=== PATIENT | female | born 1950 | race Caucasian/White ===

== ENCOUNTER → 2017-03-03 | Day surgery (SDC) | payer OTHER ==
[2017-02-24 12:01] VITALS: BMI 35.0
[~2017-03-03] VITALS: Ht 170.2 cm; Wt 101.4 kg
[~2017-03-03] MED LIST: ACET-1311 PO; BISA1SUP4; CARB1CAP8 PO; CEPH-571 PO; CLR10 PO; DLN100 PO; FENTANYL CITRATE INJ 50 MCG/1 ML 2 ML VIAL ONE; FRS/40 PO; HYDR-5688 PO; LAMO200T38 PO; LAMO25TA PO; LIDOCAINE HCL 2% 2 ML VIAL (20MG/ML) ONE; METO25TA3 PO; POTA10CA28 PO; PRMVC; PROPOFOL IV EMULSION 10 MG/ML 20 ML VIAL IV ONE; ROPI0.5T15 PO; SENN-61 PO; SODIUM CHLORIDE 0.9% 500ML 500 ML IV ONE; [UNRECOGNIZED DRUG - CODE] PO
[2017-03-03 12:46] VITALS: Ht 170.2 cm; Wt 101.4 kg
--- NOTE | 2017-03-03 13:16 | Endo History and Physical ---
History & Physical Date of Service: Mar 03, 2017. Chief Complaint: hx barretts Referring Physician: Dr. Mehta History of Present Illness h/o [place] Past Medical History Neurological Disorder, Endocrine Disorder, Osteoporosis, Asthma, Gastrointestinal Disorder, Anxiety, Reflux, Blood Dyscrasias, Seizure Disorder, Cancer, Heart Disease, CHF, Hypertension, CVA/TIA, Other, Depression Past Surgical History Hx Cardiac Surgery: No Hx Internal Defibrillator: No Hx Pacemaker: No Hx Abdominal Surgery: No Hx of Implantable Prosthesis: No Hx Cancer Surgery: Yes (BCC REMOVED.) Hx Thoracic Surgery: No Hx Orthopedic: Yes (ORIF RT ANKLE) Hx Urinary Tract Surgery: No Social History Smoking Status: Unknown if Ever Smoked Hx Substance Use: No Hx Alcohol Use: No Allergies Coded Allergies: Pseudoephedrine (Verified Allergy, Unknown, ., 03/03/17) Current Medications Reported Home Medications Medications Dose Route/Sig Max Daily Dose Days Date Category Dose Instructions [place] 5MG/325MG (Acetaminophen/Hydrocodone Bitart) Tab 1 Tablet PO Q4H PRN 02/24/17 Reported PRN PAIN Senokot (Senna) 8.6 Mg Tab 1 Tab PO BID 02/24/17 Reported Requip (Ropinirole HCl) 0.5 Mg Tab 0.5 Mg PO HS 02/24/17 Reported Micro-K Ext Rel (Potassium Chloride) 10 Meq Capcr 20 Meq PO QAM 02/24/17 Reported Dilantin (Phenytoin Sodium) 100 Mg Cap 1 Cap PO TID 30 02/24/17 Reported Premarin (Estrogens, Conjugated) 14 Appln/30 Gm Cr 1 Dose 3XWK 02/24/17 Reported Carbatrol Er (Carbamazepine) 200 Mg Capcr 2 Cap PO QAM 02/24/17 Reported Carbatrol Er (Carbamazepine) 200 Mg Capcr 3 Cap PO QPM 02/24/17 Reported Calcitrate (Calcium Citrate) 950 Mg Tab 2 Cap PO QID 02/24/17 Reported Vital Signs Weight (Kilograms): 101.36 Height (Feet): 5 Height (Inches): 7 Date Time Temp Pulse Resp B/P (MAP) Pulse Ox O2 Delivery O2 Flow Rate FiO2 03/03/17 12:56 36.6 71 18 109/66 (80) 96 Room Air Physical Exam General Appearance: WD/WN, no apparent distress Assessment and Plan EGD today
--- NOTE | 2017-03-03 13:48 | GI REPORT ---
Procedure Date: 03/03/2017 1:27 PM Procedure: Upper GI endoscopy Indications: Surveillance for malignancy due to personal history of Trevino's esophagus Medicines: Propofol per Anesthesia Complications: No immediate complications. Estimated blood loss: None. Estimated Blood Loss: Estimated blood loss: none. Procedure: Pre-Anesthesia Assessment: - Prior to the procedure, a History and Physical was performed, and patient medications, allergies and sensitivities were reviewed. The patient's tolerance of previous anesthesia was reviewed. - The risks and benefits of the procedure and the sedation options and risks were discussed with the patient. All questions were answered and informed consent was obtained. - Patient identification and proposed procedure were verified prior to the procedure by the physician and the nurse. The procedure was verified in the pre-procedure area in the procedure room. - Mental Status Examination: alert and oriented. Airway Examination: normal oropharyngeal airway and neck mobility. Respiratory Examination: clear to auscultation. CV Examination: normal. Abdominal Examination: bowel sounds present, abdomen soft and non-tender, no masses or organomegaly noted. - ASA Grade Assessment: III - A patient with severe systemic disease. After obtaining informed consent, the endoscope was passed under direct vision. Throughout the procedure, the patient's blood pressure, pulse, and oxygen saturations were monitored continuously. The scope was introduced through the mouth, and advanced to the second part of duodenum. The upper GI endoscopy was accomplished without difficulty. The patient tolerated the procedure well. Findings: There were esophageal mucosal changes consistent with short-segment Trevino's esophagus present in the lower third of the esophagus. The maximum longitudinal extent of these mucosal changes was 3 cm in length. A large hiatus hernia was present. The examined duodenum was normal. Impression: - Esophageal mucosal changes consistent with short-segment Trevino's esophagus. - Large hiatus hernia. - Normal examined duodenum. - No specimens collected. Recommendation: - Repeat the upper endoscopy in 3 years for surveillance, health permitting. - Return to primary care physician as previously scheduled. - Use a proton pump inhibitor PO. - Discharge patient to home. Jojo Park D.O. Jojo Park DO 03/03/2017 1:47:32 PM This report has been signed electronically. Note Initiated On: 03/03/2017 1:27 PM I attest to the content of the Intraoperative Record and orders documented therein, exceptions below
--- NOTE | 2017-03-03 13:57 | Discharge Instructions ---
Endoscopy Patient Instructions Date / Procedure(s) Performed Mar 03, 2017. EGD Allergy Information Coded Allergies: Pseudoephedrine (Verified Allergy, Unknown, ., 03/03/17) Discharge Date / Findings Mar 03, 2017. Barretts esophagus Medication Instructions Stopped Medication(s): did not take any morning meds Restart Stopped Medication(s): OK to resume all home medications. as above. Provider Instructions Activity Restrictions - No exercising or heavy lifting for 24 hours. - Do not drink alcohol the day of the procedure. - Do not drive a car or operate machinery until the day after the procedure. - Do not make any important decisions or sign important papers in 24 hours after the procedure. Following Day: - Return to full activity which may include returning to work/school. Diet Start your diet with liquids and light foods (jello, soup, juice, toast). Then eat your usual diet if not nauseated. Treatment For Common After Affects For mild abdominal pain, bloating, or excessive gas: - Rest - Eat lightly - Lie on right side Follow-Up Information Follow-up with Dr. Mehta as scheduled Anesthesia Information What You Should Know You have had a procedure that required some medicine to reduce anxiety and discomfort. This treatment is called moderate sedation. After receiving the treatment, you may be sleepy, but you will be able to breathe on your own. The effects of the treatment may last for several hours. Follow these instructions along with Activity/Diet recommendations noted above: * Do NOT do anything where dizziness or clumsiness would be dangerous. * Rest quietly at home today, then you can be up and about tomorrow. * Have a responsible person stay with you the rest of today. * You may have had an I.V. today. If so, you may take the dressing off later today. Recommendations Call your doctor if: * Trouble breathing * Continuous vomiting for more than 24 hours * Temperature above 101 degrees * Severe abdominal pain or bloating * Pain not relieved by pain medicine ordered * There is increased drainage or redness from any incision * A large amount of rectal bleeding greater than 2-3 tablespoons. (If you had a polyp/s removed or have hemorrhoids, a small amount of blood - from the rectum is to be expected.) * You have any unanswered questions or concerns. IN THE EVENT OF A SERIOUS EMERGENCY, GO TO THE NEAREST EMERGENCY ROOM Your discharge instructions were prepared by provider Jojo Park. Patient Instructions Signature Page Clau Lance Patient (or Guardian) Signature/Date: I have read and understand the instructions given to me by my caregivers. Caregiver/RN/Doctor Signature/Date: The above-named patient and/or guardian has received patient instructions on this date. + Original Patient Signature Page (only) stays with chart. Please make copy for patient.
[2017-03-03 14:00] VITALS: BP 110/72; PULSE 70; O2SAT 97
--- NOTE | 2017-03-03 14:08 | Anesthesiology Progress Note ---
Anesthesia Post Op Note Date & Time Mar 03, 2017 at 14:07 Vital Signs Pain Intensity: 0 Vital Signs Past 12 Hours Date Time Temp Pulse Resp B/P (MAP) Pulse Ox O2 Delivery O2 Flow Rate FiO2 03/03/17 14:00 70 16 110/72 (85) 97 Room Air 03/03/17 13:51 71 16 121/74 (90) 99 Room Air 03/03/17 13:41 67 16 100/58 (72) 96 Room Air 03/03/17 12:56 36.6 71 18 109/66 (80) 96 Room Air Notes Mental Status: alert / awake / arousable, participated in evaluation Pt Amnestic to Procedure: Yes Nausea / Vomiting: adequately controlled Pain: adequately controlled Airway Patency, RR, SpO2: stable & adequate BP & HR: stable & adequate Hydration State: stable & adequate Anesthetic Complications: no major complications apparent
== END | disposition home or self-care (01) ==
LOC: C.GI 12:20
PROVIDERS: ATTEND Internal Medicine
DX: K22.70 Barrett's esophagus without dysplasia (principal); K44.9 Diaphragmatic hernia without obstruction or gangrene; K21.9 Gastro-esophageal reflux disease without esophagitis; I11.0 Hypertensive heart disease with heart failure; I50.9 Heart failure, unspecified; E34.9 Endocrine disorder, unspecified; J45.909 Unspecified asthma, uncomplicated; F41.9 Anxiety disorder, unspecified; F32.9 Major depressive disorder, single episode, unspecified; Z86.73 Personal history of transient ischemic attack (TIA), and cerebral infarction without residual deficits; M81.0 Age-related osteoporosis without current pathological fracture; G40.909 Epilepsy, unspecified, not intractable, without status epilepticus; D75.9 Disease of blood and blood-forming organs, unspecified; Z79.899 Other long term (current) drug therapy

== ENCOUNTER 2017-03-04 11:35 | Emergency (ER) | payer OTHER ==
[~2017-03-04] VITALS: Ht 172.7 cm; Wt 99.4 kg
[~2017-03-04 11:35] MED LIST changes: -ACET-1311 PO; -BISA1SUP4; -CEPH-571 PO; -CLR10 PO; -FENTANYL CITRATE INJ 50 MCG/1 ML 2 ML VIAL ONE; -FRS/40 PO; -LAMO200T38 PO; -LAMO25TA PO; -LIDOCAINE HCL 2% 2 ML VIAL (20MG/ML) ONE; -METO25TA3 PO; -PROPOFOL IV EMULSION 10 MG/ML 20 ML VIAL IV ONE; -SODIUM CHLORIDE 0.9% 500ML 500 ML IV ONE
[2017-03-04 11:46] VITALS: Ht 172.7 cm; Wt 99.4 kg
[2017-03-04 11:51] VITALS: O2SAT 96
[2017-03-04] MEDS ORDERED: METO25TA3 PO (12:43)
[2017-03-04] MEDS ORDERED: LAMO25TA PO (12:43)
[2017-03-04] MEDS ORDERED: FRS/40 PO (12:43)
[2017-03-04] MEDS ORDERED: BISA1SUP4 (12:43)
[2017-03-04] MEDS ORDERED: CLR10 PO (12:43)
[2017-03-04] MEDS ORDERED: ACET-1311 PO (12:43)
[2017-03-04] MEDS ORDERED: LAMO200T38 PO (12:43)
[2017-03-04] MEDS ORDERED: SODIUM CHLORIDE 0.9% 1000ML 250 ML IV STA (13:13)
[2017-03-04] MEDS ORDERED: SODIUM CHLORIDE 0.9% 1000ML 1,000 ML IV STA (13:13)
[2017-03-04 13:52] LABS: CALCIUM 8.5 mg/dl (8.5-10.1); CREATININE 0.8 mg/dl (0.60-1.20); POTASSIUM 4.1 mmol/L (3.5-5.1)
--- NOTE | 2017-03-04 14:21 | DIAGNOSTIC IMAGING REPORT ---
ABDOMEN AND PELVIS CT WITHOUT CONTRAST CT DOSE: HISTORY: Right lower quadrant abdominal pain. eval for endoscopy comp TECHNIQUE: Multiaxial CT images of the abdomen and pelvis were performed without contrast. A dose lowering technique was utilized adhering to the principles of ALARA. COMPARISON STUDY: None. FINDINGS: Calcifications and groundglass opacities at the base of the lower lobes. Moderate hiatus hernia. No pneumoperitoneum. No pneumatosis. Mild presacral edema. A 9 mm presacral hypodense lesion/cyst. Lumbar subcutaneous edema. Cholecystectomy. The unenhanced liver, spleen, and adrenal glands are unremarkable. A few hypodense lesions within the pancreatic head with the largest measuring 1.3 cm. 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 No retroperitoneal lymphadenopathy. Moderate bladder wall thickening with surrounding inflammatory change. There are multiple bladder diverticula. The largest diverticula seen on the left side and measures 4.6 cm. Hysterectomy. Suboptimal evaluation for bowel pathology due to the lack of intravenous and oral contrast. However, there is no definite bowel wall thickening or obstruction. Normal appendix. No renal or ureteral stones. Moderate to severe bilateral hydroureteronephrosis. Mild urothelial thickening within the right renal collecting system and right ureter with periureteral fat stranding. There is mild right perinephric fat stranding. Therefore, this likely represents a superimposed infection. IMPRESSION: 1. Thickening and adjacent fat stranding at the bladder wall, right renal pelvis, and right ureter. Therefore, this is consistent with a cystitis and pyelitis/pyelonephritis. 2. Moderate to severe bilateral hydroureteronephrosis to the level of the bladder. No renal or ureteral calculi. This may be chronic. 3. No bowel wall thickening or obstruction. 4. Additional findings as described above. Electronically signed by: Ash Valerio M.D. 03/04/2017 2:20 PM Dictated Date/Time: 03/04/2017 2:08 PM
[2017-03-04 14:32] LABS: HEMATOCRIT 37.4 % (37-47); MEAN CELL VOLUME 99.7 fL (80-100); MEAN CORPUSCULAR HEMOGLOBIN 35.7 pg (25-34); MEAN CORPUSCULAR HGB CONC 35.8 g/dl (32-36); MEAN PLATELET VOLUME 9.2 fL (7.4-10.4); PLATELET COUNT 166 K/uL (130-400); RED BLOOD COUNT 3.75 M/uL (4.2-5.4); WHITE BLOOD COUNT 4.22 K/uL (4.8-10.8)
--- NOTE | 2017-03-04 14:37 | DIAGNOSTIC IMAGING REPORT ---
CT OF THE CHEST WITHOUT IV CONTRAST CLINICAL HISTORY: Abdominal pain. Recent endoscopy. COMPARISON STUDY: Chest radiograph May 15, 2007. CT DOSE: 1095.93 mGy.cm TECHNIQUE: Axial images of the chest were obtained without IV contrast. Images were reviewed in the axial, sagittal, and coronal planes. IV contrast was not administered for this examination. A dose lowering technique was utilized adhering to the principles of ALARA. FINDINGS: No pneumomediastinum, pneumothorax or pleural effusion is present. The heart is moderately enlarged. A moderate size sliding hiatal hernia is noted with partially intrathoracic stomach. There is no mediastinal fluid. Lungs are suboptimally assessed due to respiratory motion. There is no lobar consolidation. There are multifocal bilateral opacities with tree-in-bud configuration and parenchymal calcifications. The findings are likely chronic. No suspicious bony lesions are present. The abdomen and pelvis will be reported separately. There is no thoracic lymphadenopathy. IMPRESSION: 1. No acute intrathoracic findings. No pneumomediastinum, pneumothorax or pleural effusion. 2. Moderate size sliding type hiatal hernia with partially intrathoracic stomach. 3. Interstitial thickening and multifocal tree-in-bud nodules, many of which are calcified, throughout the lungs which are likely chronic. Electronically signed by: Musa Faith M.D. 03/04/2017 2:36 PM Dictated Date/Time: 03/04/2017 2:27 PM
--- NOTE | 2017-03-04 14:38 | DIAGNOSTIC IMAGING REPORT ---
CHEST ONE VIEW PORTABLE CLINICAL HISTORY: Chest and abdominal pain. Recent endoscopy. COMPARISON STUDY: Chest radiograph May 15, 2017. FINDINGS: No pneumothorax or pleural effusion is present. Moderate cardiomegaly is noted. Reticulonodular interstitial thickening is noted with scattered calcifications throughout the lungs. The findings are likely chronic. There is no evidence of pneumomediastinum. A moderate sized hiatal hernia is noted. IMPRESSION: 1. No acute cardiopulmonary findings. 2. Reticulonodular interstitial thickening within the lungs. This is age indeterminate although likely chronic. Electronically signed by: Musa Faith M.D. 03/04/2017 2:37 PM Dictated Date/Time: 03/04/2017 2:36 PM
[2017-03-04 14:56] LABS: AGGLUTINATED RBC 3+; BASO % 0.5 %; BASO ABS # 0.02 K/uL (0-0.2); COMPLETE YES; EOS % 0.2 %; IG% 0.2 %; LYMPH % 35.3 %; LYMPH ABS # 1.49 K/uL (1.2-3.4); NEUT % 53.8 %
[2017-03-04] MEDS ORDERED: CEFTRIAXONE SOD INJ 1 GM ADDVIAL IV STA (16:09)
[2017-03-04] MEDS ORDERED: CEPH-571 PO (16:12)
--- NOTE | 2017-03-04 16:48 | EMERGENCY ROOM VISIT NOTE ---
History Report prepared by Katrin: Holden Mejia Under the Supervision of: Dr. Surendra Henderson M.D. First contact with patient: 13:05 Chief Complaint: ABDOMINAL PAIN Stated Complaint: ABDOMINAL PAIN Nursing Triage Summary: Pt reports c/o RLQ pain since this morning. 11/08. denies n/v/d. pt was scoped yesterday for Barretts Esophagus. Hx of stroke. Pt awake, alert and oriented. History of Present Illness The patient is a 66 year old female who presents to the Emergency Room with complaints of constant lower abdominal pain beginning today. The patient describes per pain as a feeling of "soreness". She had an upper endoscopy yesterday for Trevino's Esophagus. She is a resident in a senior care. The patient has a history of stroke with motor deficits and recurring minor seizures. Per daughter, the patient has not had any nausea, fevers, cough, vomiting, or diarrhea. HPI limited secondary to mental state. Source of History: patient History Limited By: other (mental state) Onset: Today Position: abdomen (lower) Quality: other ("soreness") Timing: constant Associated Symptoms: No nausea, No vomiting, No diarrhea Review of Systems ROS limited secondary to mental state. Past Medical & Surgical Medical Problems: (1) Barretts esophagus (2) CVA (cerebral vascular accident) Old medical records were reviewed. Nurse's notes were reviewed and I agree with. Family History Unobtainable secondary to mental state. Social History Smoking Status: Never Smoker Alcohol Use: none Housing Status: senior care Current/Historical Medications Scheduled Calcium Citrate (Calcitrate), 2 CAP PO QID Carbamazepine (Carbatrol Er), 3 CAP PO QPM Carbamazepine (Carbatrol Er), 2 CAP PO QAM Cephalexin (Keflex), 1 CAP PO BID Estrogens, Conjugated (Premarin), 1 DOSE 3XWK Loratadine (Claritin), 10 MG PO DAILY Metoprolol Succ (Toprol Xl) (Toprol-Xl), 25 MG PO DAILY Phenytoin Sodium (Dilantin), 1 CAP PO TID Potassium Chloride (Micro-K Ext Rel), 20 MEQ PO QAM Ropinirole (Requip), 0.5 MG PO HS Senna (Senokot), 1 TAB PO BID Scheduled PRN Hydrocodone/Acetaminophen 5MG/325MG ([place]ham 5MG/325MG), 1 TABLET PO Q4H PRN for Pain Miscellaneous Medications Acetaminophen (Tylenol), 325 MG PO Bisacodyl (Bisacodyl Laxative) Furosemide (Lasix), 40 MG PO Lamotrigine (Lamictal), 25 MG PO Lamotrigine (Lamictal), 200 MG PO Allergies Coded Allergies: Pseudoephedrine (Verified Allergy, Unknown, ., 03/03/17) Physical Exam Vital Signs Date Time Temp Pulse Resp B/P (MAP) Pulse Ox O2 Delivery O2 Flow Rate FiO2 03/04/17 17:16 85 03/04/17 14:50 69 20 106/91 96 Room Air 03/04/17 13:46 73 16 99/84 93 Room Air 03/04/17 13:09 71 18 93 Room Air 03/04/17 11:59 67 03/04/17 11:51 96 Room Air 03/04/17 11:46 36.9 66 20 115/66 96 Room Air Physical Exam General: Chronically ill appearing older female in no acute distress. HEENT: Normal cephalic atraumatic. Pupils are equal round and reactive to light. Extraocular movements are intact. Oropharynx is pink with moist mucous membranes. No swelling of the mouth lips or tongue. Neck: Supple with a midline trachea. No meningeal signs or stiffness, no JVD or bruits. No Stridor. Chest: Clear to auscultation bilaterally. No wheezes or rhonchi. No increased work of breathing. Heart: regular rate and rhythm. Abdomen: Soft, nondistended without rebound guarding or rigidity. Minimally tender in the epigastric area. No rebound or guarding. Extremities: No cyanosis clubbing or edema. No calf tenderness or assymetry Spine/Back. Non tender to palpation. No CVA tenderness Skin: Good turgor without rashes. Neurologic exam: Cranial nerves two through 12 are intact. Chronic left leg weakness Medical Decision & Procedures ER Provider Diagnostic Interpretation: Radiology results as stated below per my review and radiologist interpretation: CHEST ONE VIEW PORTABLE FINDINGS: No pneumothorax or pleural effusion is present. Moderate cardiomegaly is noted. Reticulonodular interstitial thickening is noted with scattered calcifications throughout the lungs. The findings are likely chronic. There is no evidence of pneumomediastinum. A moderate sized hiatal hernia is noted. IMPRESSION: 1. No acute cardiopulmonary findings. 2. Reticulonodular interstitial thickening within the lungs. This is age indeterminate although likely chronic. Electronically signed by: Musa Faith M.D. 03/04/2017 2:[address] OF THE CHEST WITHOUT IV CONTRAST FINDINGS: No pneumomediastinum, pneumothorax or pleural effusion is present. The heart is moderately enlarged. A moderate size sliding hiatal hernia is noted with partially intrathoracic stomach. There is no mediastinal fluid. Lungs are suboptimally assessed due to respiratory motion. There is no lobar consolidation. There are multifocal bilateral opacities with tree-in-bud configuration and parenchymal calcifications. The findings are likely chronic. No suspicious bony lesions are present. The abdomen and pelvis will be reported separately. There is no thoracic lymphadenopathy. IMPRESSION: 1. No acute intrathoracic findings. No pneumomediastinum, pneumothorax or pleural effusion. 2. Moderate size sliding type hiatal hernia with partially intrathoracic stomach. 3. Interstitial thickening and multifocal tree-in-bud nodules, many of which are calcified, throughout the lungs which are likely chronic. Electronically signed by: Musa Faith M.D. 03/04/2017 2:36 PM [address]OM[address] AND PELVIS CT WITHOUT CONTRAST FINDINGS: Calcifications and groundglass opacities at the base of the lower lobes. Moderate hiatus hernia. No pneumoperitoneum. No pneumatosis. Mild presacral edema. A 9 mm presacral hypodense lesion/cyst. Lumbar subcutaneous edema. Cholecystectomy. The unenhanced liver, spleen, and adrenal glands are unremarkable. A few hypodense lesions within the pancreatic head with the largest measuring 1.3 cm. 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 No retroperitoneal lymphadenopathy. Moderate bladder wall thickening with surrounding inflammatory change. There are multiple bladder diverticula. The largest diverticula seen on the left side and measures 4.6 cm. Hysterectomy. Suboptimal evaluation for bowel pathology due to the lack of intravenous and oral contrast. However, there is no definite bowel wall thickening or obstruction. Normal appendix. No renal or ureteral stones. Moderate to severe bilateral hydroureteronephrosis. Mild urothelial thickening within the right renal collecting system and right ureter with periureteral fat stranding. There is mild right perinephric fat stranding. Therefore, this likely represents a superimposed infection. IMPRESSION: 1. Thickening and adjacent fat stranding at the bladder wall, right renal pelvis, and right ureter. Therefore, this is consistent with a cystitis and pyelitis/pyelonephritis. 2. Moderate to severe bilateral hydroureteronephrosis to the level of the bladder. No renal or ureteral calculi. This may be chronic. 3. No bowel wall thickening or obstruction. 4. Additional findings as described above. Electronically signed by: Ash Valerio M.D. 03/04/2017 2:20 PM Laboratory Results 03/04/17 13:00 Red Blood Count 3.75, Mean Corpuscular Volume 99.7, Mean Corpuscular Hemoglobin 35.7, Mean Corpuscular Hemoglobin Concent 35.8, Mean Platelet Volume 9.2, Neutrophils (%) (Auto) 53.8, Lymphocytes (%) (Auto) 35.3, Monocytes (%) (Auto) 10.0, Eosinophils (%) (Auto) 0.2, Basophils (%) (Auto) 0.5, Neutrophils # (Auto ) 2.27, Lymphocytes # (Auto) 1.49, Monocytes # (Auto) 0.42, Eosinophils # (Auto ) 0.01, Basophils # (Auto) 0.02 03/04/17 13:00 Test 03/04/17 13:00 03/04/17 13:54 White Blood Count 4.22 K/uL (4.8-10.8) Red Blood Count 3.75 M/uL (4.2-5.4) Hemoglobin 13.4 g/dL (12.0-16.0) Hematocrit 37.4 % (37-47) Mean Corpuscular Volume 99.7 fL (80-100) Mean Corpuscular Hemoglobin 35.7 pg (25-34) Mean Corpuscular Hemoglobin Concent 35.8 g/dl (32-36) Platelet Count 166 K/uL (130-400) Mean Platelet Volume 9.2 fL (7.4-10.4) Neutrophils (%) (Auto) 53.8 % Lymphocytes (%) (Auto) 35.3 % Monocytes (%) (Auto) 10.0 % Eosinophils (%) (Auto) 0.2 % Basophils (%) (Auto) 0.5 % Neutrophils # (Auto) 2.27 K/uL (1.4-6.5) Lymphocytes # (Auto) 1.49 K/uL (1.2-3.4) Monocytes # (Auto) 0.42 K/uL (0.11-0.59) Eosinophils # (Auto) 0.01 K/uL (0-0.5) Basophils # (Auto) 0.02 K/uL (0-0.2) RDW Standard Deviation 43.8 fL (36.4-46.3) RDW Coefficient of Variation 12.6 % (11.5-14.5) Immature Granulocyte % (Auto) 0.2 % Immature Granulocyte # (Auto) 0.01 K/uL (0.00-0.02) RBC Agglutinates 3+ Anion Gap 6.0 mmol/L (3-11) Est Creatinine Clear Calc Drug Dose 84.1 ml/min Estimated GFR () 88.4 Estimated GFR (Non- 76.3 BUN/Creatinine Ratio 12.0 (10-20) Calcium Level 8.5 mg/dl (8.5-10.1) Total Bilirubin 0.3 mg/dl (0.2-1) Direct Bilirubin 0.1 mg/dl (0-0.2) Aspartate Amino Transf (AST/SGOT) 14 U/L (15-37) Alanine Aminotransferase (ALT/SGPT) 12 U/L (12-78) Alkaline Phosphatase 130 U/L (45-117) Total Protein 7.7 gm/dl (6.4-8.2) Albumin 2.9 gm/dl (3.4-5.0) Lipase 166 U/L (73-393) Bedside Troponin I < 0.030 ng/ml (0-0.045) Laboratory studies as stated above per my review. Medications Administered Medications (Trade) Dose Ordered Sig/Nelson Route Start Time Stop Time Status Last Admin Dose Admin Sodium Chloride 250 ml @ 999 mls/hr Q16M STAT IV 03/04/17 13:13 03/04/17 13:28 DC 03/04/17 13:48 999 MLS/HR Sodium Chloride 1,000 ml @ 100 mls/hr Q10H STAT IV 03/04/17 13:13 03/04/17 23:12 03/04/17 13:48 100 MLS/HR Ceftriaxone Sodium (Rocephin Inj) 1 gm NOW STAT IV 03/04/17 16:09 03/04/17 16:10 DC 03/04/17 16:30 1 GM ECG Indication: abdominal pain Rate (beats per minute): 68 Rhythm: normal sinus Findings: no acute ischemic change, other (Non-specific T-wave abnormality) Comparison ECG Date: May 15, 2007 Change: T-waves are now less pronounced. ED Course 1305: Past medical records reviewed. The patient was evaluated in room C1B, and a complete history and physical examination were performed. 1313: Ordered Sodium Chloride 1000 ml @ 100 mls/hr IV, Sodium Chloride 250 ml @ 999 mls/hr IV. 1450: I reassessed the patient. She is resting comfortably. She denies any urinary symptoms. 1609: Ordered Rocephin Inj 1 gm IV. 1612: Upon reevaluation, the patient is resting comfortably. I discussed the results and treatment plan with her. She verbalized agreement of the treatment plan. The patient was discharged home. Medical Decision Differentials include, but are not limited to; post op complication, intestinal gas, pancreatitis, infection, cardiac disease and electrolyte or metabolic abnormality. This patient comes in as described above . she's had abdominal pain mostly in the upper abdomen centrally. She had endoscopy done yesterday. She has normal vital signs. She is afebrile. IV access established and blood work was obtained. She did denies any urinary symptoms initially. She's had no fever at home. Given her procedure, I did a CAT scan of the chest , abdomen, and pelvis. She has no evidence to suggest a combination related to her procedure. She has nothing to suggest acute coronary syndrome or arrhythmia. She has no elevation of her white count. She has normal kidney function. She's had no electrode or metabolic abnormality. The CAT scan shows what is appears to be more of a chronic hydronephrosis of both sides. She may have some stranding of the bladder and towards right kidney as well. Clinically, I do not think she has pyelonephritis, She's not tender ,she's not ill ,she's not vomiting. She is urinating well and does not have anything to suggest obstruction. I will start on antibiotic he was given Rocephin 1 g IV here. She'll be sent home with Keflex 500 mg 3 times a day for 7 days. She should return ER if: Increasing pain, worsening of symptoms, fever or chills, any new problems or concerns and I recommend she get rechecked by her doctor next 1-2 days. Medication Reconcilliation Current Medication List: was personally reviewed by me Blood Pressure Screening Patient's blood pressure: Normal blood pressure Blood pressure disposition: Did not require urgent referral Impression Primary Impression: UTI (urinary tract infection) Additional Impression: Central abdominal pain Scribe Attestation The scribe's documentation has been prepared under my direction and personally reviewed by me in its entirety. I confirm that the note above accurately reflects all work, treatment, procedures, and medical decision making performed by me. Departure Information Dispostion Home / Self-Care Prescriptions Cephalexin (KEFLEX) 500 Mg Cap 1 CAP PO BID for 10 Days, #20 CAP Prov: Surendra Henderson M.D. 03/04/17 Referrals Luis Manuel Mehta M.D. (PCP) Forms Call Back Authorization, HOME CARE DOCUMENTATION FORM, IMPORTANT VISIT INFORMATION Patient Instructions My [facility] Additional Instructions Rest. Drink plenty of fluids. Use Keflex 500 mg, 3 times a dayantibiotic Return if: Fever, increasing pain, worsening symptoms, any new problems or concerns. Follow-up with your doctor in 1-2 days for recheck Problem Qualifiers
[2017-03-04 18:14] LABS: URINE APPEARANCE CLOUDY (CLEAR); URINE BILIRUBIN NEG (NEG); URINE COLOR YELLOW; URINE EPITHELIAL CELL AUTO >30 /lpf (0-5); URINE NITRITE NEG (NEG); URINE PH 8.5 (4.5-7.5); URINE SPECIFIC GRAVITY 1.011 (1.000-1.030); UROBILINOGEN NEG (NEG)
[2017-03-04 18:32] LABS: MANUAL MICROSCOPIC REQUIRED? NO; REVIEW REQ? YES; SULFASALICYLIC ACID NEG (NEG)
[2017-03-04 19:05] VITALS: BP 122/85; PULSE 72; TEMP 36.9; O2SAT 98
== END 2017-03-04 19:30 | disposition home or self-care (01) ==
LOC: EDBD 11:35 → C.EDC 11:36
DX: N39.0 Urinary tract infection, site not specified (principal); R10.31 Right lower quadrant pain; K44.9 Diaphragmatic hernia without obstruction or gangrene; Z86.73 Personal history of transient ischemic attack (TIA), and cerebral infarction without residual deficits

== ENCOUNTER 2021-04-16 19:50 | Inpatient (IN) ==
[2021-04-16 23:34] LABS: Appearance Urine Turbid (Clear); Bacteria Urine Automated 4+ (Negative); Bilirubin Urine Negative (Negative); Blood Urine 3+ (Negative); Color Urine Dark Yellow; Epithelial Cell Urine Auto >30 /lpf (0-5); Glucose Urine UA Negative (Negative); Ketones Urine Negative (Negative); Leukocyte Esterase Urine 3+ (Negative); Nitrite Urine Negative (Negative); Protein Urine 2+ (Negative); Specific Gravity Urine 1.022 (1.000-1.030); Urobilinogen Urine Negative (Negative); WBC Urine Automated >30 /hpf (0-5)
[2021-04-16] MEDS ORDERED: SODIUM CHLORIDE 0.9% 500 ML IV ONE (23:49)
[2021-04-17 00:05] LABS: Calcium Oxalate Crystals Urine Present (None Prsent); RBC Urine Automated >30 /hpf (0-4)
[2021-04-17 00:06] LABS: Mucus Urine Present (None Prsent)
[2021-04-17 01:13] LABS: Alanine Aminotransferase 19 U/L (12-78); Albumin Level 2.5 gm/dl (3.4-5.0); Aspartate Aminotransferase 21 U/L (15-37); BUN Creatinine Ratio 28.8 (10-20); Blood Urea Nitrogen 15 mg/dl (7-18); Calcium 8.8 mg/dl (8.5-10.1); Carbon Dioxide 31 mmol/L (21-32); Chloride 106 mmol/L (98-107); Est GFR (African American) 112.9 ml/min; Est GFR (Non-African American) 97.4 ml/min; Glucose 98 mg/dl (70-99); Potassium 3.9 mmol/L (3.5-5.1); Sodium 140 mmol/L (136-145)
[2021-04-17 01:15] LABS: Albumin Globulin Ratio 0.5 (0.9-2); Alkaline Phosphatase 149 U/L (45-117); Bilirubin,Total 0.2 mg/dl (0.2-1); Globulin 4.7 gm/dl (2.5-4.0); Total Protein 7.2 gm/dl (6.4-8.2)
--- NOTE | 2021-04-17 01:20 | Emergency Department Note ---
Impression & Plan Emphysematous cystitis, Accidental fall from bed, Bedridden ED Provider Note NAME: MICHELLE BARNES AGE: 70 SEX: F ARRIVES VIA: Ambulance INFORMANT: Patient, ED PROVIDER(S): Christian Downing MD CHIEF COMPLAINT: Fall out of bed. PLAN: Disposition: Admit MEDICAL DECISION MAKING: The patient is a pleasant 70-year-old woman with a past medical history of CVA with history of left-sided neglect, seizure disorder, dementia, GERD, who is bed bound at baseline who presents to the emergency department from her long term facility at [facility] after having a fall where it was noted that she rolled out of bed onto her back. Per report from staff and EMS they were concerned that the patient was complaining of back pain and left hip pain. They wondered whether or not the patient had a shortened left leg however this is also the leg she neglects. Patient is a poor historian. She denies any complaints upon arrival. On arrival patient is chronically ill-appearing but no acute distress, afebrile stable vital signs. She appears clinically dry. Given the unreliable exam and unclear details of the patient's fall extensive CT imaging was performed given concern from staff. CT of the head, cervical spine and chest were negative for acute process. CT of the abdomen pelvis demonstrated possible subtle fracture of the left greater trochanter however unlikely to be acute. Note is made of air within the bladder which given the patient had not had any straight catheterization to our knowledge most likely represents infection/emphysematous cystitis. Fistula cannot be excluded however I did review the CT with stat rad radiology, Dr. Mullins and then and there is no diverticulitis which would lead to the development of a fistula at this time. Given the CT finding I did review this with the patient's sister who assists with the patient's care and she did agree to proceed with blood work and admission if indicated for further management. Of note, the sister reports that she not aware if there paper is paperwork that exists regarding the patient's goals of care but she feels as though she most likely would not want CPR if needed. Otherwise she understands that they would proceed with most treatments or interventions if indicated. WBC, H/H and platelets within normal limits. Chemistry without metabolic acidosis. Electrolytes LFTs without significant abnormality. Patient UA is consistent with infection. Thus, given the patient's CT findings which appear consistent with emphysematous cystitis reasonable to meet the patient for IV antibiotics and further evaluation. Case was discussed with Khadar Patel hospitalist, who will evaluate the patient for admission. Triage Nursing notes reviewed and agree them. Prior medical records reviewed Vital Signs: reviewed and remarkable for no significant abnormalities Differential diagnosis: Fracture, dislocation, contusion, intra-abdominal, pneumothorax, intrathoracic, intracranial, neurologic, compartment syndrome, rhabdomyolysis, as well as other pathologies. ER treatment provided: See below. Diagnostics interpreted by me: Cardiac Monitoring: Laboratory studies: See below Imaging studies: See below Consultation(s): Case was discussed with Khadar Patel hospitalist, who will evaluate the patient for admission. HPI: The patient is a pleasant 70-year-old woman with a past medical history of CVA with history of left-sided neglect, seizure disorder, dementia, GERD, who is bedbound at baseline who presents to the emergency department from her long term facility at [facility] after having a fall where it was noted that she rolled out of bed onto her back. Per report from staff and EMS they were concerned that the patient was complaining of back pain and left hip pain. They wondered whether or not the patient had a shortened left leg however this is also the leg she neglects. Patient is a poor historian. She denies any complaints upon arrival. ROS: See above HPI for pertinent positives & negatives. A total of 10 systems reviewed and were otherwise negative. PAST MEDICAL HISTORY:See Below PAST SURGICAL HISTORY:See Below FAMILY HISTORY:See Below SOCIAL HISTORY:See Below HOME MEDICATIONS:See Below ALLERGIES:See Below VITALS:See Below PHYSICAL EXAMINATION: GENERAL: Awake, alert, chronically ill-appearing, in no distress HENT: Atraumatic. Oropharynx with dry mucous membranes and otherwise unremarkable. EYES: Normal conjunctiva. Sclera non-icteric. NECK: Supple. No nuchal rigidity. FROM. No JVD. RESPIRATORY: Clear to auscultation. CARDIAC: Regular rate, normal rhythm. Extremities warm and well perfused. Pulses equal. ABDOMEN: Soft, non-distended. No tenderness to palpation. No rebound or guarding. No masses. RECTAL: Deferred. MUSCULOSKELETAL: Chest examination reveals no tenderness. The back is symmetrical on inspection without obvious abnormality. There is no CVA tenderness to palpation. No joint edema. LOWER EXTREMITIES: Calves are equal size bilaterally and non-tender. No edema. No discoloration. NEURO: Generalized weakness throughout with increased weakness of the left upper extremity and left lower extremity with 2/5 strength SKIN: No rash or jaundice noted. Christian Downing MD Past Med/Surg History Medical History Barretts esophagus Bedridden CVA (cerebral vascular accident) Memory impairment Resides in long term facility Seizure disorder Family History Other Family history non-contributory Social History Smoking Status: Unknown if ever smoked Hx Alcohol Use: No Hx Substance Use: No Preferred Language: Khmer Communication Ability: Impaired Cadet Deck Required: No Beliefs That Will Affect Care: None Current Living Situation: Senior Living Current Living Situation Comment: [facility] Other Information That Helps Us Care for You: No Feels Safe at Home: Yes Safety Concerns: Feels Safe At This Time Allergies Allergies Allergy/AdvReac Type Severity Reaction Status Date / Time pseudoephedrine Allergy Unknown . Verified 04/16/21 20:36 Home Meds Home Medications Medication Instructions Recorded Confirmed acetaminophen 500 mg tablet 500 mg PO TID 04/16/21 04/16/21 aspirin 81 mg tablet,delayed 81 mg PO QAM 04/16/21 04/16/21 release carbamazepine 100 mg/5 mL oral 400 mg PO BID 04/16/21 04/16/21 suspension carbamazepine 200 mg/10 mL oral 600 mg PO HS 04/16/21 04/16/21 suspension diclofenac sodium 1 % topical gel 2 g TOPICAL TID 04/16/21 04/16/21 famotidine 20 mg tablet 20 mg PO BID 04/16/21 04/16/21 lamotrigine 200 mg tablet 200 mg PO BID 04/16/21 04/16/21 lamotrigine 25 mg tablet 25 mg PO BID 04/16/21 04/16/21 menthol 0.44 %-zinc oxide 20.6 % 1 applic TOPICAL QID 04/16/21 04/16/21 topical ointment in packet (Calmoseptine) multivitamin 1 tab PO DAILY 04/16/21 04/16/21 omeprazole 20 mg capsule,delayed 20 mg PO QAM 04/16/21 04/16/21 release phenytoin 125 mg/5 mL oral 250 mg PO TID 04/16/21 04/16/21 suspension polyethylene glycol 3350 17 gram 17 g PO 2XWK 04/16/21 04/16/21 oral powder packet potassium chloride 20 mEq 20 meq PO BID 04/16/21 04/16/21 tablet,extended release scopolamine base 1 mg over 3 days 1 patch TRANSDERMAL Q3D 04/16/21 04/16/21 transdermal patch Results & Data (ED) Vital Signs Vital Signs - 24 hr 04/16/21 20:06 04/16/21 20:30 04/16/21 21:00 Temperature 37 C Temperature Source Oral Pulse Rate 83 75 Pulse Rate [Apical] Pulse Rate from SpO2 Sensor 83 Respiratory Rate 20 19 17 Respiratory Effort / Characteristics Non-Labored Spontaneous Blood Pressure 146/90 H Blood Pressure [Right Arm] Blood Pressure Mean 108 Blood Pressure Mean [Right Arm] Pulse Oximetry 100 99 100 Oxygen Delivery Method Room Air Room Air Room Air Sepsis Recent Fever Within 48 Hours No Sepsis New/Unexplained Change in Mental Status No Sepsis Action Taken by Nursing No Action Required 04/16/21 21:30 04/16/21 22:00 04/16/21 23:00 Temperature Temperature Source Pulse Rate 75 73 Pulse Rate [Apical] 73 Pulse Rate from SpO2 Sensor 75 Respiratory Rate 14 17 18 Respiratory Effort / Characteristics Non-Labored Spontaneous Blood Pressure 98/52 L Blood Pressure [Right Arm] 112/77 Blood Pressure Mean 67 Blood Pressure Mean [Right Arm] 88 Pulse Oximetry 98 98 Oxygen Delivery Method Room Air Sepsis Recent Fever Within 48 Hours Sepsis New/Unexplained Change in Mental Status Sepsis Action Taken by Nursing 04/16/21 23:49 04/17/21 02:13 04/17/21 03:00 Temperature Temperature Source Pulse Rate 71 Pulse Rate [Apical] 74 Pulse Rate from SpO2 Sensor Respiratory Rate 16 21 Respiratory Effort / Characteristics Non-Labored Spontaneous Blood Pressure Blood Pressure [Right Arm] 156/77 H Blood Pressure Mean Blood Pressure Mean [Right Arm] 103 Pulse Oximetry 100 97 Oxygen Delivery Method Room Air Room Air Sepsis Recent Fever Within 48 Hours Sepsis New/Unexplained Change in Mental Status Sepsis Action Taken by Nursing Laboratory Data Attestation: I reviewed the patient's lab results. Result diagrams: 04/17/21 00:21 04/17/21 00:21 Lab Results 04/16/21 04/17/21 04/17/21 Range/Units 23:15 00:21 00:21 WBC 5.29 (4.8-10.8) K/uL RBC 3.81 L (4.2-5.4) M/uL Hgb 13.5 (12.0-16.0) g/dL Hct 38.2 (37-47) % MCV 100.3 H (80-100) fL MCH 35.4 H (25-34) pg MCHC 35.3 (32-36) g/dL RDW Std Deviation 46.3 (36.4-46.3) fL RDW Coeff of Sherri 13.2 (11.5-14.5) % Plt Count 166 (130-400) K/uL MPV 9.3 (7.4-10.4) fL Immature Gran % (Auto) 0.2 % Neut % (Auto) 46.3 % Lymph % (Auto) 31.9 % Kenton % (Auto) 11.2 % Eos % (Auto) 10.0 % Baso % (Auto) 0.4 % Neut # (Auto) 2.45 (1.4-6.5) K/uL Lymph # (Auto) 1.69 (1.2-3.4) K/uL Kenton # (Auto) 0.59 (0.11-0.59) K/uL Eos # (Auto) 0.53 H (0-0.5) K/uL Baso # (Auto) 0.02 (0-0.2) K/uL Immature Gran # (Auto) 0.01 (0.00-0.02) K/uL RBC Agglutinates 1+ Sodium 140 (136-145) mmol/L Potassium 3.9 (3.5-5.1) mmol/L Chloride 106 (98-107) mmol/L Carbon Dioxide 31 (21-32) mmol/L Anion Gap 3.0 (3-11) BUN 15 (7-18) mg/dl Creatinine 0.50 L (0.6-1.2) mg/dl Est Cr Clr Drug Dosing Not Reportable Est GFR ( Amer) 112.9 ml/min Est GFR (Non-Af Amer) 97.4 ml/min BUN/Creatinine Ratio 28.8 H (10-20) Glucose 98 (70-99) mg/dl Calcium 8.8 (8.5-10.1) mg/dl Total Bilirubin 0.2 (0.2-1) mg/dl AST 21 (15-37) U/L ALT 19 (12-78) U/L Alkaline Phosphatase 149 H (45-117) U/L Total Protein 7.2 (6.4-8.2) gm/dl Albumin 2.5 L (3.4-5.0) gm/dl Globulin 4.7 H (2.5-4.0) gm/dl Albumin/Globulin Ratio 0.5 L (0.9-2) Urine Color Dark Yellow Urine Appearance Turbid A (Clear) Urine pH 5.0 (4.5-7.5) Ur Specific Chelsea 1.022 (1.000-1.030) Urine Protein 2+ H (Negative) Urine Glucose (UA) Negative (Negative) Urine Ketones Negative (Negative) Urine Blood 3+ H (Negative) Urine Nitrite Negative (Negative) Urine Bilirubin Negative (Negative) Urine Urobilinogen Negative (Negative) Ur Leukocyte Esterase 3+ H (Negative) Urine WBC (Auto) >30 H (0-5) /hpf Urine RBC (Auto) >30 H (0-4) /hpf U Hyaline Cast (Auto) 10-30 H (0-5) /lpf U Epithel Cells (Auto) >30 H (0-5) /lpf Urine Bacteria (Auto) 4+ H (Negative) Calcium Oxalate Crystal Present A (None Prsent) Urine Mucus Present A (None Prsent) Urine Yeast Not Reportable COVID-19 Eval Order SARS-CoV-2 (PCR) (Negative) 04/17/21 04/17/21 Range/Units 00:47 00:47 WBC (4.8-10.8) K/uL RBC (4.2-5.4) M/uL Hgb (12.0-16.0) g/dL Hct (37-47) % MCV (80-100) fL MCH (25-34) pg MCHC (32-36) g/dL RDW Std Deviation (36.4-46.3) fL RDW Coeff of Sherri (11.5-14.5) % Plt Count (130-400) K/uL MPV (7.4-10.4) fL Immature Gran % (Auto) % Neut % (Auto) % Lymph % (Auto) % Kenton % (Auto) % Eos % (Auto) % Baso % (Auto) % Neut # (Auto) (1.4-6.5) K/uL Lymph # (Auto) (1.2-3.4) K/uL Kenton # (Auto) (0.11-0.59) K/uL Eos # (Auto) (0-0.5) K/uL Baso # (Auto) (0-0.2) K/uL Immature Gran # (Auto) (0.00-0.02) K/uL RBC Agglutinates Sodium (136-145) mmol/L Potassium (3.5-5.1) mmol/L Chloride (98-107) mmol/L Carbon Dioxide (21-32) mmol/L Anion Gap (3-11) BUN (7-18) mg/dl Creatinine (0.6-1.2) mg/dl Est Cr Clr Drug Dosing Est GFR ( Amer) ml/min Est GFR (Non-Af Amer) ml/min BUN/Creatinine Ratio (10-20) Glucose (70-99) mg/dl Calcium (8.5-10.1) mg/dl Total Bilirubin (0.2-1) mg/dl AST (15-37) U/L ALT (12-78) U/L Alkaline Phosphatase (45-117) U/L Total Protein (6.4-8.2) gm/dl Albumin (3.4-5.0) gm/dl Globulin (2.5-4.0) gm/dl Albumin/Globulin Ratio (0.9-2) Urine Color Urine Appearance (Clear) Urine pH (4.5-7.5) Ur Specific Chelsea (1.000-1.030) Urine Protein (Negative) Urine Glucose (UA) (Negative) Urine Ketones (Negative) Urine Blood (Negative) Urine Nitrite (Negative) Urine Bilirubin (Negative) Urine Urobilinogen (Negative) Ur Leukocyte Esterase (Negative) Urine WBC (Auto) (0-5) /hpf Urine RBC (Auto) (0-4) /hpf U Hyaline Cast (Auto) (0-5) /lpf U Epithel Cells (Auto) (0-5) /lpf Urine Bacteria (Auto) (Negative) Calcium Oxalate Crystal (None Prsent) Urine Mucus (None Prsent) Urine Yeast COVID-19 Eval Order Covid19 at [facility] SARS-CoV-2 (PCR) NEGATIVE (Negative) Administered Medications Sodium Chloride (Nss 1000ml) 1,000 mls @ 80 mls/hr IV .[id number] EVA Stop: 04/17/21 17:18 Last Admin: 04/17/21 05:36 Dose: 80 mls/hr Documented by: [id number] Discontinued Medications Sodium Chloride (Nss) 500 mls @ 999 mls/hr IV .[id number] ONE Stop: 04/17/21 00:19 Last Infusion: 04/17/21 01:19 Dose: 0 mls/hr Documented by: [id number] Admin: 04/17/21 00:44 Dose: 999 mls/hr Documented by: [id number] Piperacillin Sod/Tazobactam Sod (Zosyn) 4.5 gm in 120 mls @ 240 mls/hr IV NOW ONE Stop: 04/17/21 02:23 Last Infusion: 04/17/21 04:22 Dose: 0 mls/hr Documented by: [id number] Admin: 04/17/21 03:51 Dose: 240 mls/hr Documented by: [id number] Imaging Data Radiologist's Impression: [email or web address] Preliminary Findings Only See Final Report For Complete Findings CT HEAD: No ICH, mass effect or edema. No skull fracture. Atrophy with small vessel disease and gliosis/and septal malacia at the right convexity. Numerous bur holes Radiologist: Collins Mullins M.D. Study ready at 21:47 and initial results transmitted at 21:50 Preliminary Findings Only See Final Report For Complete Findings CT C SPINE: No evidence of fracture or malalignment. Calcified nodular infiltrates in the upper lung villalobos. Radiologist: Collins Mullins M.D. Study ready at 21:45 and initial results transmitted at 22:11 Preliminary Findings Only See Final Report For Complete Findings CT CHEST Without Contrast: No apparent acute traumatic findings. Moderate to large hiatal hernia. Cardiomegaly. Calcified nodular infiltrates Radiologist: Collins Mullins M.D. Study ready at 21:47 and initial results transmitted at 22:21 Preliminary Findings Only See Final Report For Complete Findings CT ABDOMEN & PELVIS Without Contrast: No apparent solid organ injury or hemoperitoneum. Possibly subtle fracture of the left greater trochanter, of uncertain chronicity. Bilateral nephrolithiasis and parapelvic renal cysts. Air in the bladder that may be from recent instrumentation, infection with a gas-forming organism or occult fistula. Bladder diverticula and calculi. Mass lesions in the presacral region, largest measures approximately 3 cm. Radiologist: Collins Mullisn M.D. Study ready at 21:46 and initial results transmitted at 22:25 Discharge Plan Visit Data Chief Complaint: Fall Stated Complaint: Hip Pain ED Provider: Christian Downing Discharge Problem: Emphysematous cystitis, Accidental fall from bed, Bedridden Patient Disposition: Admitted As Inpatient Discharge Instructions Interventions: ED Discharge Assessment Last Done: 04/17/21 04:40
[2021-04-17 01:51] LABS: Hematocrit (blood only) 38.2 % (37-47); Hemoglobin 13.5 g/dL (12.0-16.0); Mean Corpuscular Hemoglobin 35.4 pg (25-34); Mean Corpuscular Hgb Conc 35.3 g/dL (32-36); Mean Corpuscular Volume 100.3 fL (80-100); Mean Platelet Volume 9.3 fL (7.4-10.4); Platelet Count 166 K/uL (130-400); RDW Coefficient of Variation 13.2 % (11.5-14.5); RDW Standard Deviation 46.3 fL (36.4-46.3); Red Blood Count 3.81 M/uL (4.2-5.4); White Blood Count 5.29 K/uL (4.8-10.8)
[2021-04-17] MEDS ORDERED: PIPERACILLIN/TAZOBACTAM 4.5 GM/120 ML BAG IV ONE (01:54)
[2021-04-17] MEDS ORDERED: PIPERACILL/TAZOBAC CONSULT ACTIVE PRN (01:54)
[2021-04-17 02:05] LABS: Agglutinated RBC 1+; Basophils # (auto) 0.02 K/uL (0-0.2); Basophils % (auto) 0.4 %; Eosinophils # (auto) 0.53 K/uL (0-0.5); Immature Granulocytes # (auto) 0.01 K/uL (0.00-0.02); Immature Granulocytes % (auto) 0.2 %; Lymphocytes # (auto) 1.69 K/uL (1.2-3.4); Lymphocytes % (auto) 31.9 %; Monocytes # (auto) 0.59 K/uL (0.11-0.59); Monocytes % (auto) 11.2 %; Neutrophils # (auto) 2.45 K/uL (1.4-6.5); Neutrophils % (auto) 46.3 %
--- NOTE | 2021-04-17 04:45 | History and Physical Report ---
DATE OF ADMISSION: 04/17/2021. CHIEF COMPLAINT: Status post fall and UTI. 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 She is basically bedbound, history of epilepsy, migraines, history of dementia, peripheral neuropathy, anemia of chronic kidney disease, depression, generalized anxiety disorder, history of COVID-19 in 04/2020. Currently, vaccinated now status post booster dose, hypertension, allergic rhinitis, asthma, currently living at [facility] who was brought in because of fall from the bed. The patient seems to be rolled out over the bed and fell down and question of some shortened left lower extremity.. Imaging studies in the ER showed questionable subtle fracture of the left greater trochanter of uncertain chronicity and also possible gas forming organisms on the bladder. The patient is currently resting comfortably and hemodynamically stable. Denies any pain. Denies any cough, denies any chest pain or any belly pain. She says she eats okay, but she is a poor historian, could tell her name.As per halfway, she is totally bedbound. Her memory got worse since the COVID last April and her appetite is also down since then. She is on a mechanical soft diet and she drinks liquid through Emre cup. Currently, patient is afebrile. Could not able to reach her sister who is her power of trademark attorney and she is a DNR as per halfway. ALLERGIES: PSEUDOEPHEDRINE. PAST MEDICAL HISTORY: As mentioned above. PAST SURGICAL HISTORY: EGD with biopsy, cholecystectomy, total abdominal hysterectomy with removal of tubes. MEDICATIONS: The patient is on acetaminophen 500 mg p.o. t.i.d., aspirin 81 mg p.o. daily, carbamazepine 400 mg p.o. b.i.d. and carbamazepine 600 mg p.o. at bedtime, diclofenac sodium 2 g topical t.i.d., famotidine 20 mg b.i.d., Lamictal 200 mg b.i.d. and Lamictal 25 mg b.i.d., multivitamin 1 tablet p.o. daily, omeprazole 20 mg p.o. a.m., phenytoin 25 mg p.o. t.i.d., MiraLax 17 g p.o. 2 times a day, potassium chloride 20 mEq p.o. b.i.d., Scopolamine patch q. 3 days. FAMILY HISTORY: Significant for father has stroke. Uncle has stroke. SOCIAL HISTORY: Currently staying at [facility]. History of smoking. No alcohol use. No drug use as per records. REVIEW OF SYMPTOMS: Patient has dementia, currently unobtainable. PHYSICAL EXAMINATION: GENERAL: The patient is alert, awake, oriented to name. VITAL SIGNS: Temperature 37, pulse 74, respirations 16, blood pressure 156/77, oxygen 97% on room air. HEENT: Pupils equal, round and reactive to light. Oral mucosa moist. NECK: No JVD or neck masses. CARDIOVASCULAR: S1 and S2 heard. Regular rate and rhythm, no murmur, no gallop. RESPIRATORY SYSTEM: Normal AP diameter. No accessory muscle use. No wheezing, no crackles. ABDOMEN: Soft, bowel sounds present, nontender, no distention. CENTRAL NERVOUS SYSTEM: Alert and awake, oriented to name. Tries to obey simple commands. No facial droop seen. Some weakness on the left side. EXTREMITIES: Left lower extremity is somewhat shortened. No edema, no erythema seen. LABORATORY DATA: WBC 5.2, hemoglobin 13.5, hematocrit 38.2, platelets 166. Sodium 140, potassium 3.9, chloride 106, bicarbonate 31, BUN 15, creatinine 0.5, serum glucose 98, calcium 8.8, total bilirubin 0.2, AST 21, ALT 19, alkaline phosphatase 149. Urinalysis positive for leukocyte esterase and bacteria. SARS-CoV-2 PCR is negative. IMAGING DATA: CT of the head, on preliminary report, no acute findings, numerous hemanth holes seen. CT of the chest, moderate to large hiatal hernia, no acute findings. Cervical spine CT, on preliminary report, no acute findings. CT of the abdomen and pelvis preliminary report, possible subtle fracture of the left greater trochanter of uncertain chronicity, bilateral nephrolithiasis and parapelvic renal cyst in the urinary bladder that may be from recent instrumentation, infection with gas forming organism, occult fistula, bladder diverticula, calculi and mass lesions in the presacral region, largest measuring approximately 3 cm. ASSESSMENT AND PLAN: This 70-year-old female coming from [facility] with fall, seems she rolled over from the bed. 1. Fall. The patient is bedbound, fall over from the bed. Imaging studies show questionable subtle fracture of the left greater trochanter of r unknown chronicity. We will follow the final report of the CAT scan. The patient currently seems to be not in distress. The patient has stroke and hemiplegia on left side. We will admit to the hospital, monitor and follow the final report of the CAT scan. 2. Urinary tract infection. Follow the final report of the CAT scan of abdomen and pelvis. Follow the cultures. Empirically started on Zosyn in the ER, which we will continue. Continue gentle fluids. 3. History of seizures. Continue home medication of Lamictal, carbamazepine and phenytoin. Currently stable. 4. History of coronary artery disease. Continue her home medication of aspirin, not on statin and beta rolo currently. 5. History of Trevino's esophagus. Continue her famotidine and omeprazole. 6. History of cerebrovascular accident, on aspirin .currently bedbound. 7. History of dementia. The patient is on mechanical soft diet. Monitor for any delirium. 8. History of diastolic congestive heart failure, getting gentle fluids, monitor for any volume overload. 9. Deep venous thrombosis prophylaxis: Placed on heparin subcutaneous. DISPOSITION: Discharge back to [facility] when stable. CODE STATUS: DNR as per discussion with the halfway, not able to reach her sister who is power of trademark attorney. Sister's name is Floresita Mcallister, her phone number is [phone]. DISPOSITION: Admit to [employer] [facility] to help with discharge back to [facility] when stable. Job ID: [id number] [facility]
[2021-04-17] MEDS ORDERED: NITROGLYCERIN SL 0.4 MG/TAB TAB SL PRN (04:49)
[2021-04-17] MEDS ORDERED: SODIUM CHLORIDE 0.9% 1000ML 1,000 ML IV SCH (04:49)
[2021-04-17] MEDS ORDERED: ONDANSETRON INJ 2 MG/ML 2 ML VIAL IV PRN (04:49)
[2021-04-17] MEDS ORDERED: ACETAMINOPHEN 325 MG TAB PO PRN (04:49)
[2021-04-17] MEDS: HEPARIN SOD 5,000 UNIT/0.5 ML VIAL SQ SCH ×3 (05:48→22:33)
--- NOTE | 2021-04-17 06:45 | CT Scan Report ---
CT head/brain wo con CLINICAL HISTORY: 70 years-old Female with pain fall from bed. Acute head trauma status post fall TECHNIQUE: Multiple axial CT images of the head were obtained without contrast. A dose lowering tech nique was utilized adhering to the principles of ALARA. COMPARISON: CT cervical spine of same day, head CT 05/15/2007 FINDINGS: Study is limited by motion degradation and patient positioning. No acute intracranial hemorrhage, mid line shift, intracranial mass, hydrocephalus, territorial ischemia or abnormal extra-axial collection . Age-related involutional changes. White matter hypodensities suggest chronic microvascular ischemic disease. Moderate atrophy of the cerebellum. Encephalomalacia of the right frontal lobe near the jigna edison with ex vacuo prominence of the right lateral ventricle. Calcifications of the lentiform nuclei w ith an unchanged linear calcification abutting the falx cerebri on image 12 series 13. No acute calvarial fracture. Numerous hemanth holes of the calvarium to the vertex. Mastoid air cells a re clear. Mild mucosal thickening of the ethmoid air cells. IMPRESSION: No acute intracranial abnormality or calvarial fracture. ACT 112: Negative or not required by law. The above report was generated using voice recognition software. It may contain grammatical, syntax o r spelling errors. Electronically signed by: Jermaine Reddy M.D. 04/17/2021 6:43 AM
--- NOTE | 2021-04-17 07:03 | CT Scan Report ---
CT cervical spine wo con CLINICAL HISTORY: 70 years-old Female with pain fall from bed. Acute neck injury status post fall COMPARISON: Head CT of same day, chest CT 03/04/2017 TECHNIQUE: Multiple axial CT images of the cervical spine were obtained without contrast. A dose low ering technique was utilized adhering to the principles of ALARA. FINDINGS: Limited exam secondary to positioning. Demineralized appearance of the bones. 3 mm anteroli sthesis C6 on C7 is likely on a degenerative basis. Mild superior endplate compression at T1 without retropulsion. Moderate to severe multilevel intervertebral disc space narrowing with associated spond ylitic spurring and posterior disc osteophyte complex formations. Moderate to severe multilevel facet arthrosis. Multilevel neural foraminal narrowing suggested. No acute cervical spine fracture or subl uxation. Chronic reticular nodular upper lobe opacities with parenchymal calcifications redemonstrated. There is no pneumothorax. Multinodular thyroid. IMPRESSION: 1. Limited exam secondary to positioning. No acute cervical spine fracture or subluxation. 2. Mild superior plate compression deformity at T1 without retropulsion, favored to be chronic. ACT 112: Negative or not required by law. The above report was generated using voice recognition software. It may contain grammatical, syntax o r spelling errors. Electronically signed by: Jermaine Reddy M.D. 04/17/2021 7:01 AM
[2021-04-17] MEDS: PIPERACILLIN/TAZOBACTAM 3.375 GM in DEXTROSE 5% 100 ML IV SCH ×2 (08:35→16:22)
--- NOTE | 2021-04-17 08:56 | CT Scan Report ---
CT SCAN OF THE CHEST, ABDOMEN, AND PELVIS WITHOUT IV CONTRAST CLINICAL HISTORY: Fall. Pain. COMPARISON STUDY: CT scan of the chest, abdomen, and pelvis dated 03/04/2017. TECHNIQUE: Unenhanced CT scan of the chest, abdomen, and pelvis was performed from the thoracic inlet to the proximal femora. Images are reviewed in the axial, sagittal, and coronal planes. IV contrast was not administered for this examination. Note that the examination was performed in significantly s uboptimal fashion without IV contrast. A dose lowering technique was utilized adhering to the princip les of EARLE. The examination is severely degraded by inability to properly position the patient, mot ion artifact, and streak artifact from the arms which could not be elevated above the chest or abdome n. CT DOSE: 2214.47 mGy.cm FINDINGS: CHEST: Thyroid: Heterogeneous. Thoracic aorta: There is atherosclerotic calcification of the thoracic aorta, which is normal in [place] vitaliy and demonstrates bovine variant arch anatomy. Heart: The heart is top normal in size and without pericardial effusion. The coronary arteries are de nsely calcified. Lungs and pleural spaces: Evaluation of the lung parenchyma is degraded by motion artifact. Foci of s carring/atelectasis are seen throughout both lungs. There is no pneumothorax or pleural effusion. Num erous calcified granulomas are scattered throughout both lungs. Foci of tree-in-bud nodularity sugges ting chronic infectious/inflammatory process. This is similar to the 2017 examination. The trachea ap pears clear. Mediastinum: There is no mediastinal hematoma or lymphadenopathy. Karen: Not well assessed without IV contrast. Axillae: There is no axillary lymphadenopathy. Bony thorax: The skeletal structures are osteopenic. Degenerative change and kyphoscoliosis are noted in the thoracic spine. There are mild chronic superior endplate compression deformities of T4, T5, a nd T11. A large hemangioma is noted in the body of T4. No lytic or blastic lesions are identified. Ar thritic change is seen in the shoulders. Cervical spondylosis is partially visualized. ABDOMEN AND PELVIS: Liver: The unenhanced liver is normal in size, contour, and attenuation. There is no intrahepatic abran iary ductal dilatation. Gallbladder: Unremarkable. Spleen: Normal in size and attenuation. Pancreas: The unenhanced pancreas is atrophic and grossly unremarkable. The pancreas is not well-imag ed. Adrenal glands: Unremarkable. Kidneys: The unenhanced kidneys are atrophic. There is a 2.3 cm staghorn calculus in the left renal p marlyn. At least 2 additional nonobstructing left renal calculi measure up to 5 mm. There are at least 4 stones/fragments in the right renal pelvis which measure up to 6 mm. There are large bilateral ext ra renal pelvises without clear hydronephrosis. Inflammatory change is present around the renal pelvi s bilaterally. No ureteral stone is seen. There is no evidence of contour deforming mass lesion. Abdominal vasculature: The abdominal aorta is normal in course and caliber noting moderate atheroscle rotic calcification. Stomach and bowel: There is a moderate hiatal hernia. There is moderate colonic fecal retention. No b owel obstruction is seen. The appendix is not visualized. Peritoneum: There is no intraperitoneal free air or abdominal ascites. Lymphadenopathy: None. Pelvic viscera: Dependent hyperdense material within the bladder lumen likely represents layering romy culi The bladder wall appears thickened and there is a large amount of gas within the bladder lumen. Calcifications are also contained with bilateral bladder diverticula. The uterus is surgically absent . No adnexal lesion is seen. There are indeterminant presacral nodules which measure up to 3 cm as se en on axial images #320, #340, and #353. Skeletal structures: The skeletal structures are heterogeneously osteopenic. No acute fracture is yasmeen stephanie identified involving the lumbosacral spine or bony pelvis. No lytic or blastic lesions are seen. Degenerative change and scoliosis are noted in the lumbar spine. There is a subacute appearing fract ure involving the greater trochanter of the left proximal femur IMPRESSION: 1. Significantly suboptimal examination without IV contrast. The examinations are also severely compr omised by streak, motion, and inability to properly position the patient. 2. There is no acute posttraumatic intrathoracic abnormality identified. 3. There is no pleural effusion or pneumothorax. 4. Numerous foci of tree-in-bud nodularity scattered throughout both lungs are similar to a 017 exami nation and suggest a chronic infectious/inflammatory pneumonitis such as atypical mycobacterium. Cons ider nonemergent pulmonology follow-up. 5. There is no evidence of solid organ injury in the abdomen or pelvis on this unenhanced examination . Note that this is suboptimally assessed. 6. There is a subacute/healing fracture in the greater trochanter of the left femur. 7. No definite acute fracture is identified. Due to osteopenia, motion, and positioning a subtle nond isplaced fracture would be difficult to exclude. 8. Bilateral nephrolithiasis as above noting in a staghorn calculus in the left renal pelvis. 9. No definite hydronephrosis is seen. Inflammatory change is present around the renal pelvis bilater ally. Correlate clinically and with urinalysis for evidence of urinary tract infection. 10. A large air-fluid levels noted in the bladder with numerous bladder calculi, some of which are co ntained within bladder diverticula. Again, correlate with urinalysis. 11. There are indeterminant presacral nodules. These are pathologically indeterminant, but were not c learly seen on the 2017 examination. This could be on a chronic/postoperative basis, or could represe nt an inflammatory or neoplastic process. Clinical correlation will be essential. 12. Additional findings as above. ACT 112: Negative or not required by law. Electronically signed by: Mg Lopez M.D. 04/17/2021 8:54 AM
[2021-04-17] MEDS ORDERED: LORazepam 0.5 MG/1 ML VIAL IV PRN (09:30)
[2021-04-17] MEDS: DICLOFENAC SOD 1% GEL 100 GM TUBE EXT SCH ×3 (09:55→20:16)
[2021-04-17] MEDS: CHECK SCOPOLAMINE PATCH PLACEMENT SCH ×3 (09:55→23:52)
[2021-04-17] MEDS: PHENYTOIN SUSP 125 MG/5 ML PO SCH ×3 (09:56→20:15)
[2021-04-17] MEDS: FAMOTIDINE 20 MG TAB PO SCH ×3 (10:28→20:16)
[2021-04-17] MEDS: lamoTRIgine 25 MG TAB PO SCH ×3 (10:28→20:16)
[2021-04-17] MEDS: lamoTRIgine 100 MG TAB PO SCH ×3 (10:28→20:15)
[2021-04-17] MEDS: ASPIRIN 81 MG ECTAB PO SCH ×2 (10:28→12:18)
[2021-04-17] MEDS: ACETAMINOPHEN 500 MG TAB PO SCH ×3 (10:28→20:14)
[2021-04-17] MEDS: MENTHOL-ZINC OXIDE 360 APPLN/120 GM TUBE EXT SCH ×4 (10:29→20:15)
[2021-04-17] MEDS: PANTOprazole 40 MG TAB PO SCH ×2 (10:29→12:17)
[2021-04-17] MEDS: MULTIVITAMIN TAB PO SCH ×2 (10:29→12:17)
[2021-04-17] MEDS: POTASSIUM CHLORIDE CRTAB 20 MEQ TABCR PO SCH ×3 (10:29→20:28)
--- NOTE | 2021-04-17 14:23 | Neurology Consultation ---
Date of Consultation April 17, 2021 Assessment & Plan (1) Seizure disorder: 1. continue tegretol 400 mg BID and 600 mg hs 2. continue lamictal 225 mg BID 3. dilantin 250 mg TID 4. levels for dilantin, lamictal and tegretol need ordered 5. does not drive, no heights, no bathing or swimming alone, and other seiuzre precautions 6. would not stop seizure medications if palliative medicine is explored 7. she has not had complete seizure control for years. will be available for questions concerns. (2) Accidental fall from bed: 1. no fractures on imaging (3) Emphysematous cystitis: 1. treat to culture Supervising Physician Co-Signing Physician Notes I have seen and discussed above patient with Dr Anitra Brady, neurology. Patient is seen and examined. Patient is well-known to me although I have not seen her for 10 years. She had intractable seizures as a an adult and ultimately underwent a corpus callosotomy and I believe a right frontal lobe activity. 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 She still at least in the past had partial complex seizures which as I recall consider consisted of her assuming a fencer posture. By report she had a brief seizure of similar sort since she was here. She was brought in because of a fall out of bed. Apparently she is lost a significant amount of weight and been cognitively different since she had Covid close to a year ago. We were consulted because she was refusing to take her medications. She is on Lamictal Dilantin and Tegretol. She does not have any anticonvulsant allergies that I am aware of and I know that in the past she has taken Keppra although I recall that it was not effective. I reviewed her lab as well as CT of the head. Qualitatively it sounds very similar to prior imaging. On exam blood pressure 133/[id number] 1636 8 O2 sat 99% Clau appears very chronically ill and very significantly lower in weight than when I saw her last. 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 She is awake and alert her neck is supple. Her speech pattern is at its baseline. She is oriented to hospital. She asks if she can use the bedpan. She follows some simple commands. There is normal extraocular motility and facial symmetry. She has some upper motor neuron posturing of the bilateral upper extremities. Grossly the uppers are antigravity in right lower is antigravity in the left lower is near antigravity. 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 Patient has partial complex seizures but I do not recall that she has had breakthrough generalized seizures since her surgery. Her seizure control has been suboptimal but by report at baseline at least in the past. We were consulted because she was not taking medications by mouth or was refusing to do so. Apparently nursing has been able to subsequently give her her medications. Dilantin is available intravenously and can be converted to the same daily dose in divided dose that she takes by mouth. If it was easier Tegretol could be given via elixir and similarly with Lamictal. Unfortunately those are not available intravenously. I have ordered Lamictal Tegretol and Dilantin levels. At present she appears very cooperative and I suspect she would take her medications. 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 She is basically bedboundand [facility] who was brought in because of fall from the bed. She rolled out of the bed and fell down and question of some shortened left low er extremity imaging is a questional subtle fracture of the left greater trochanter of uncertain chronicity and also possible gas forming organisms on the bladder.Her memory got worse since the COVID last April and her appetite is also down since then. She is on a mechanical soft diet and she drinks liquid through Emre cup. She is resting with no complaint of pain. She does know she is in a hospital. denies CP, SOB, abdominal pain. Allergies Allergy/AdvReac Type Severity Reaction Status Date / Time pseudoephedrine Allergy Unknown . Verified 04/16/21 20:36 Home Medications Medication Instructions Recorded Confirmed Type acetaminophen 500 mg tablet 500 mg PO TID 04/16/21 04/16/21 History aspirin 81 mg tablet,delayed 81 mg PO QAM 04/16/21 04/16/21 History release carbamazepine 100 mg/5 mL oral 400 mg PO BID 04/16/21 04/16/21 History suspension carbamazepine 200 mg/10 mL oral 600 mg PO HS 04/16/21 04/16/21 History suspension diclofenac sodium 1 % topical gel 2 g TOPICAL TID 04/16/21 04/16/21 History famotidine 20 mg tablet 20 mg PO BID 04/16/21 04/16/21 History lamotrigine 200 mg tablet 200 mg PO BID 04/16/21 04/16/21 History lamotrigine 25 mg tablet 25 mg PO BID 04/16/21 04/16/21 History menthol 0.44 %-zinc oxide 20.6 % 1 applic TOPICAL QID 04/16/21 04/16/21 History topical ointment in packet (Calmoseptine) multivitamin 1 tab PO DAILY 04/16/21 04/16/21 History omeprazole 20 mg capsule,delayed 20 mg PO QAM 04/16/21 04/16/21 History release phenytoin 125 mg/5 mL oral 250 mg PO TID 04/16/21 04/16/21 History suspension polyethylene glycol 3350 17 gram 17 g PO 2XWK 04/16/21 04/16/21 History oral powder packet potassium chloride 20 mEq 20 meq PO BID 04/16/21 04/16/21 History tablet,extended release scopolamine base 1 mg over 3 days 1 patch TRANSDERMAL Q3D 04/16/21 04/16/21 History transdermal patch Patient History Medical History Barretts esophagus Bedridden CVA (cerebral vascular accident) Memory impairment [facility]ides in prison facility Seizure disorder Family History Other Family history non-contributory Social History Smoking Status: Unknown if ever smoked Hx Alcohol Use: No Hx Substance Use: No Preferred Language: Czech Communication Ability: Effective 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 Beliefs That Will Affect Care: None Current Living Situation: [facility] Current Living Situation Comment: [facility] Other Information That Helps Us Care for You: No Feels Safe at Home: Yes Safety Concerns: Feels Safe At This Time Review of Systems Review of Systems: All systems reviewed & are unremarkable except as noted in HPI & below Physical Exam Physical Exam: Physical Exam: Constitutional: appearance ill appearing very thin, scalp deformities Ears, Nose, Mouth and Throat: mucous membranes moist Cardiovascular: normal S-1 and S-2 and regular rate and rhythm Respiratory: course breath sounds Musculoskeletal: no peripheral edema and good distal pulses Skin: no stigmata of neurocutaneous disease noted and normal and intact Eyes: extraocular muscles intact (EOMI) NEUROLOGIC EXAMINATION: Mental status: Alert and interactive Oriented hospital not to day or month, thinks its 2001 Oriented to person Speech low tone and volume of speech Cranial Nerves facial symmetry Reflexes: Deep tendon reflexes were decreased LE Sensory: loss of sensation to light and cool touch Coordination: does not follow command Gait/Stance: Posture lying in bed Motor: moves UE spontaneously Strength: unable to test appears deconditioned and contracted at the trunk Results & Data ([facility]) Vital Signs (Past 12 Hours) Vital Signs Temp Pulse Pulse Resp BP BP Pulse Ox 04/17/21 13:37 36.3 C L 72 18 122/70 98 04/17/21 12:00 36.6 C 80 20 150/84 H 93 04/17/21 08:00 36.9 C 73 73 15 136/64 100 04/17/21 05:12 36.8 C 69 16 151/73 H 99 04/17/21 04:00 73 14 133/66 90 04/17/21 03:00 71 21 04/17/21 02:13 74 16 156/77 H 97 Pulse Ox 04/17/21 13:37 04/17/21 12:00 04/17/21 08:00 100 04/17/21 05:12 04/17/21 04:00 04/17/21 03:00 04/17/21 02:13 Laboratory Results Abnormal lab results 04/16/21 04/17/21 04/17/21 Range/Units 23:15 00:21 00:21 RBC 3.81 L (4.2-5.4) M/uL MCV 100.3 H (80-100) fL MCH 35.4 H (25-34) pg Eos # (Auto) 0.53 H (0-0.5) K/uL Creatinine 0.50 L (0.6-1.2) mg/dl BUN/Creatinine Ratio 28.8 H (10-20) POC Glucose (70-99) mg/dl Alkaline Phosphatase 149 H (45-117) U/L Albumin 2.5 L (3.4-5.0) gm/dl Globulin 4.7 H (2.5-4.0) gm/dl Albumin/Globulin Ratio 0.5 L (0.9-2) Urine Appearance Turbid A (Clear) Urine Protein 2+ H (Negative) Urine Blood 3+ H (Negative) Ur Leukocyte Esterase 3+ H (Negative) Urine WBC (Auto) >30 H (0-5) /hpf Urine RBC (Auto) >30 H (0-4) /hpf U Hyaline Cast (Auto) 10-30 H (0-5) /lpf U Epithel Cells (Auto) >30 H (0-5) /lpf Urine Bacteria (Auto) 4+ H (Negative) Calcium Oxalate Crystal Present A (None Prsent) Urine Mucus Present A (None Prsent) Nasal Screen MRSA (PCR) (Negative) 04/17/21 04/17/21 Range/Units 05:44 08:43 RBC (4.2-5.4) M/uL MCV (80-100) fL MCH (25-34) pg Eos # (Auto) (0-0.5) K/uL Creatinine (0.6-1.2) mg/dl BUN/Creatinine Ratio (10-20) POC Glucose 106 H (70-99) mg/dl Alkaline Phosphatase (45-117) U/L Albumin (3.4-5.0) gm/dl Globulin (2.5-4.0) gm/dl Albumin/Globulin Ratio (0.9-2) Urine Appearance (Clear) Urine Protein (Negative) Urine Blood (Negative) Ur Leukocyte Esterase (Negative) Urine WBC (Auto) (0-5) /hpf Urine RBC (Auto) (0-4) /hpf U Hyaline Cast (Auto) (0-5) /lpf U Epithel Cells (Auto) (0-5) /lpf Urine Bacteria (Auto) (Negative) Calcium Oxalate Crystal (None Prsent) Urine Mucus (None Prsent) Nasal Screen MRSA (PCR) Positive A (Negative) Diagnostic Findings CT chest/abd/pelvis-Significantly suboptimal examination without IV contrast. The examinations are also severely compromised by streak, motion, and inability to properly position the patient. . There is no acute posttraumatic intrathoracic abnormality identified. There is no pleural effusion or pneumothorax. Numerous foci of tree-in-bud nodularity scattered throughout both lungs are similar to a 017 examination and suggest a chronic inf ectious/inflammatory pneumonitis such as atypical mycobacterium. There is no evidence of solid organ injury in the abdomen or pelvis on this unenhanced examination. Note that this is suboptimally assessed. There is a subacute/healing fracture in the greater trochanter of the left femur. No definite acute fracture is identified. Due to osteopenia, motion, and positioning a subtle nondisplaced fracture would be difficult to exclude. Bilateral nephrolithiasis as above noting in a staghorn calculus in the left renal pelvis. No definite hydronephrosis is seen. Inflammatory change is present around the renal pelvis bilaterally. Correlate clinically and with urinalysis for evidence of urinary tract infection. . A large air-fluid levels noted in the bladder with numerous bladder calculi, some of which are contained within bladder diverticula. There are indeterminant presacral nodules. These are pathologically indeterminant, but were not clearly seen on the 2017 examination. This could be on a chronic/postoperative basis, or could represent an inflammatory or neoplastic process. CT c spine-Limited exam secondary to positioning. No acute cervical spine fracture or subluxation. Mild superior plate compression deformity at T1 without retropulsion, favored to be chronic. CT head-No acute intracranial abnormality or calvarial fracture.
[2021-04-17 18:44] LABS: Carbamazepine Tegretol 1.2 mcg/ml (4-12)
--- NOTE | 2021-04-17 20:27 | Hospitalist Progress Note ---
Date of Service April 17, 2021 Assessment & Plan (1) Seizure disorder: Plan: Patient is a 70 yr female coming from [facility] with fall, seems she rolled over from the bed. 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 Again, correla te with urinalysis. Follow-up cultures Continue Zosyn for now Abnormal CT CT -Numerous foci of tree-in-bud nodularity scattered throughout both lungs are similar to a 017 examination and suggest a chronic infectious/inflammatory pneumonitis such as atypical mycobacterium. Consider nonemergent pulmonology follow-up. Bilateral nephrolithiasis as above noting in a staghorn calculus in the left renal pelvis. There are indeterminant presacral nodules. These are pathologically indeterminant, but were not clearly seen on the 2017 examination. This could be on a chronic/postoperative basis, or could represent an inflammatory or neoplastic process. -Poor quality of life at baseline Discussed with patient's sister-POA: No aggressive management Palliative care consulted to address goals of care coronary artery disease Continue aspirin Trevino's esophagus Continue famotidine, PPI H/O cerebrovascular accident on aspirin bedbound at baseline Dementia Mechanical soft diet at baseline H/O Diastolic congestive heart failure monitor volume status while on IV fluids DVT Px: Heparin SQ Code Status . DNI/DNR Palliative care consulted to address goals of care Family :Roxie Mcallister [phone] (Patient's Sister) Admission and Anticipated Discharge Date Admission Date: April 17, 2021 Subjective Patient is seen and examined at bedside Patient had transient partial complex seizure earlier today Unable to provide much history today Discussed with neurology today Also updated patient's family over the phone Review of Systems Review of Systems: Unobtainable due to reduced consciousness Physical Exam Physical Exam: Physical Exam: Vitals signs as noted above General Appearance:Elderly, chronic ill, no apparent distress Head: normocephalic, + Post surgical changes Eyes: normal inspection, EOMI Neck: supple, Trachea midline Respiratory/Chest: Normal breath sounds, CTA, No accessory muscle use Cardiovascular: S1, S2, No murmur Abdomen/GI:Soft, Non tender, Bowel sounds present Extremities/Musculoskeletal:normal inspection, no edema, LLE shortened, inter keely rotated Neurologic/Psych: Complete neurological exam could not be performed, follows simple commands Skin: normal color, warm Results & Data Results & Data ([facility]) Vital Signs (Past 12 Hours) Vital Signs Temp Pulse Pulse Pulse Resp BP Pulse Ox 04/17/21 18:37 37 C 73 16 141/83 H 97 04/17/21 15:50 69 04/17/21 15:47 36.8 C 71 16 133/74 99 04/17/21 13:42 67 04/17/21 13:37 36.3 C L 72 18 122/70 98 04/17/21 12:00 36.6 C 80 20 150/84 H 93 Laboratory Results Short CBC 04/17/21 Range/Units 00:21 WBC 5.29 (4.8-10.8) K/uL Hgb 13.5 (12.0-16.0) g/dL Hct 38.2 (37-47) % Plt Count 166 (130-400) K/uL BMP 04/17/21 00:21 Sodium 140 Potassium 3.9 Chloride 106 Carbon Dioxide 31 BUN 15 Creatinine 0.50 L Glucose 98 Calcium 8.8 Liver Function 04/17/21 Range/Units 00:21 Total Bilirubin 0.2 (0.2-1) mg/dl AST 21 (15-37) U/L ALT 19 (12-78) U/L Alkaline Phosphatase 149 H (45-117) U/L Albumin 2.5 L (3.4-5.0) gm/dl Urine 04/16/21 Range/Units 23:15 Urine Color Dark Yellow Urine Appearance Turbid A (Clear) Urine pH 5.0 (4.5-7.5) Ur Specific [place] 1.022 (1.000-1.030) Urine Protein 2+ H (Negative) Urine Glucose (UA) Negative (Negative)
[2021-04-17] MEDS ORDERED: CARBAMAZEPINE 200 MG/10 ML PO SCH (21:00)
--- NOTE | 2021-04-17 22:13 | Orthopedic Consultation ---
Date of Consultation April 17, 2021 Assessment & Plan (1) Trochanteric fracture of left femur: Patient was evaluated today in room 260. Conservative care measures were discussed. She lacks understanding at this point. She is bedbound. Treatment for her fracture is nonoperative. She may do transfers out of bed if needed. Because of her bedbound status, she does not require physical therapy or occupational therapy. She does not require significant bracing. Fracture is questionable on the films, and may be old. There may not be any significant healing over the next few weeks. Due to her level of demand, no intervention is required. Films were reviewed with Dr. Veliz. He concurs with today's diagnosis and treatment plan. They will use Tylenol as needed for any minor discomfort. We will continue to follow the patient while she is in the hospital. Supervising Physician Co-Signing Physician Notes I saw and examined the patient, reviewed the patient's CT scan and agree with the above note. History of Present Illness Reason for Consultation: Questionable left hip fracture Attending Physician: Omar Pruitt MD History of Present Illness This 70-year-old female is seen today in her room. History is obtained from her chart. Patient is an unreliable historian with poor understanding of the events. She resides at [facility]. She was reportedly found after falling out of bed and landing on the floor. Patient was complaining of left hip pain. She was evaluated in the ED and admitted for urinary tract infection. Orthopedics was consulted to evaluate her left hip, and potential trochanteric fracture found incidentally on CT scan imaging. Patient is known to be bedridden. She has a history of seizures, stroke, and dementia. She cannot tell me whether she has fallen before. At the moment she states she has no pain and feels fine. Allergies Allergy/AdvReac Type Severity Reaction Status Date / Time pseudoephedrine Allergy Unknown . Verified 04/16/21 20:36 Home Medications Medication Instructions Recorded Confirmed Type acetaminophen 500 mg tablet 500 mg PO TID 04/16/21 04/16/21 History aspirin 81 mg tablet,delayed 81 mg PO QAM 04/16/21 04/16/21 History release carbamazepine 100 mg/5 mL oral 400 mg PO BID 04/16/21 04/16/21 History suspension carbamazepine 200 mg/10 mL oral 600 mg PO HS 04/16/21 04/16/21 History suspension diclofenac sodium 1 % topical gel 2 g TOPICAL TID 04/16/21 04/16/21 History famotidine 20 mg tablet 20 mg PO BID 04/16/21 04/16/21 History lamotrigine 200 mg tablet 200 mg PO BID 04/16/21 04/16/21 History lamotrigine 25 mg tablet 25 mg PO BID 04/16/21 04/16/21 History menthol 0.44 %-zinc oxide 20.6 % 1 applic TOPICAL QID 04/16/21 04/16/21 History topical ointment in packet (Calmoseptine) multivitamin 1 tab PO DAILY 04/16/21 04/16/21 History omeprazole 20 mg capsule,delayed 20 mg PO QAM 04/16/21 04/16/21 History release phenytoin 125 mg/5 mL oral 250 mg PO TID 04/16/21 04/16/21 History suspension polyethylene glycol 3350 17 gram 17 g PO 2XWK 04/16/21 04/16/21 History oral powder packet potassium chloride 20 mEq 20 meq PO BID 04/16/21 04/16/21 History tablet,extended release scopolamine base 1 mg over 3 days 1 patch TRANSDERMAL Q3D 04/16/21 04/16/21 History transdermal patch Patient History Medical History (Updated 04/17/21 @ 22:11 by Darnell Loco PA-C) Barretts esophagus Bedridden CVA (cerebral vascular accident) Memory impairment Resides in [facility] facility Seizure disorder Surgical History (Updated 04/17/21 @ 22:05 by Darnell Loco PA-C) History of trephination of cranium Family History Other Family history non-contributory Social History Smoking Status: Unknown if ever smoked Hx Alcohol Use: No Hx Substance Use: No Preferred Language: Chinese Communication Ability: Effective Combatant Swimmer Required: No Beliefs That Will Affect Care: None Current Living Situation: Retirement Current Living Situation Comment: [facility] Other Information That Helps Us Care for You: No Feels Safe at Home: Yes Safety Concerns: Feels Safe At This Time Review of Systems Review of Systems: Unobtainable due to cognitive status Physical Exam Physical Exam: General: Frail, elderly white female, in no acute distress. Laying on a bed. Alert. Unable to provide accurate day, date, or place. She is conversive. Skin: Warm and dry with fair turgor. No rashes or lesions. No ecchymosis or erythema at her hip. Musculoskeletal: Left hip evaluation reveals no obvious asymmetry or deformity. She does have a leg length discrepancy with the left leg being approximately half inch short. She has supple motion of the left hip without signs of discomfort. Normal logrolling. She is able to passively flex the hip from 0 to 90 degrees without signs of discomfort. She actually has good motion. No pain with palpation over her knee or ankle at this time. Patient does states that she has pain when she is rolled for changing, but she is unable to tell me where that pain is located. There is intact motor function of her ankle, though strength is 2/5. Contracture deformities are present at her toes on the left foot. Foot is also inverted. This is correctable passively. Neurologic: Gross sensation is intact across the lower extremities by soft touch. Results & Data ([facility]) Vital Signs (Past 12 Hours) Vital Signs Temp Pulse Pulse Pulse Resp BP Pulse Ox 04/17/21 18:37 37 C 73 16 141/83 H 97 04/17/21 15:50 69 04/17/21 15:47 36.8 C 71 16 133/74 99 04/17/21 13:42 67 04/17/21 13:37 36.3 C L 72 18 122/70 98 04/17/21 12:00 36.6 C 80 20 150/[address] scan imaging of the abdomen and pelvis previously obtained, shows questionable nondisplaced trochanteric fracture. Degenerative change and scoliosis are noted in the lumbar spine.
[2021-04-18] MEDS: PIPERACILLIN/TAZOBACTAM 3.375 GM in DEXTROSE 5% 100 ML IV SCH ×4 (00:26→23:45)
[2021-04-18] MEDS: HEPARIN SOD 5,000 UNIT/0.5 ML VIAL SQ SCH ×3 (06:02→22:01)
[2021-04-18 07:47] LABS: BUN Creatinine Ratio 16.1 (10-20); Calcium 8.7 mg/dl (8.5-10.1); Creatinine Clr Calc Pharmacy 71.1 ml/min; Est GFR (African American) 108.7 ml/min; Est GFR (Non-African American) 93.8 ml/min; Magnesium 2.1 mg/dl (1.8-2.4); Potassium 4.5 mmol/L (3.5-5.1)
[2021-04-18 08:30] LABS: Basophils # (auto) 0.05 K/uL (0-0.2); Basophils % (auto) 1.2 %; Eosinophils # (auto) 0.47 K/uL (0-0.5); Eosinophils % (auto) 11.5 %; Immature Granulocytes # (auto) 0.01 K/uL (0.00-0.02); Immature Granulocytes % (auto) 0.2 %; Lymphocytes # (auto) 1.33 K/uL (1.2-3.4); Lymphocytes % (auto) 32.7 %; Mean Corpuscular Hemoglobin 32.3 pg (25-34); Mean Corpuscular Hgb Conc 32.4 g/dL (32-36); Mean Corpuscular Volume 99.7 fL (80-100); Mean Platelet Volume 9.5 fL (7.4-10.4); Monocytes % (auto) 14.7 %; Neutrophils # (auto) 1.61 K/uL (1.4-6.5); Neutrophils % (auto) 39.7 %; Platelet Count 133 K/uL (130-400); RDW Coefficient of Variation 13.2 % (11.5-14.5); RDW Standard Deviation 47.3 fL (36.4-46.3); Red Blood Count 3.71 M/uL (4.2-5.4); Rouleaux 1+; White Blood Count 4.07 K/uL (4.8-10.8)
--- NOTE | 2021-04-18 08:39 | Electrocardiogram Report ---
Test Reason : Blood Pressure : / mmHG Vent. Rate : 071 BPM Atrial Rate : 071 BPM P-R Int : 200 ms QRS Dur : 056 ms QT Int : 384 ms P-R-T Axes : 057 037 -01 degrees QTc Int : 417 ms Poor data quality, interpretation may be adversely affected Normal sinus rhythm Low voltage QRS Diffuse Nonspecific T wave abnormality Abnormal ECG When compared with ECG of 04-MAR-2017 13:46, No significant change Confirmed by Rachid Forrest ([id number]) on 04/18/2021 8:39:02 AM Referred By: Ayde Briceño Confirmed By:Rachid Forrest
[2021-04-18] MEDS ORDERED: POLYETHYLENE (MIRALAX) 17 GM PACK PO SCH (09:00)
[2021-04-18] MEDS: CHECK SCOPOLAMINE PATCH PLACEMENT SCH ×2 (09:23→17:15)
[2021-04-18] MEDS: lamoTRIgine 100 MG TAB PO SCH ×2 (09:24→20:05)
[2021-04-18] MEDS: PHENYTOIN SUSP 125 MG/5 ML PO SCH ×3 (09:24→20:07)
[2021-04-18] MEDS: lamoTRIgine 25 MG TAB PO SCH ×2 (09:25→20:06)
[2021-04-18] MEDS: ASPIRIN 81 MG ECTAB PO SCH (09:25)
[2021-04-18] MEDS: DICLOFENAC SOD 1% GEL 100 GM TUBE EXT SCH ×3 (09:27→20:19)
[2021-04-18] MEDS: ACETAMINOPHEN 500 MG TAB PO SCH ×3 (09:29→20:08)
[2021-04-18] MEDS: FAMOTIDINE 20 MG TAB PO SCH ×2 (09:29→20:06)
[2021-04-18] MEDS: POTASSIUM CHLORIDE CRTAB 20 MEQ TABCR PO SCH ×2 (09:29→20:06)
[2021-04-18] MEDS: MENTHOL-ZINC OXIDE 360 APPLN/120 GM TUBE EXT SCH ×4 (09:30→20:19)
[2021-04-18] MEDS: PANTOprazole 40 MG TAB PO SCH (09:31)
[2021-04-18] MEDS: MULTIVITAMIN TAB PO SCH (09:31)
[2021-04-18] MEDS ORDERED: carBAMazepine 200 MG TABLET PO ONE (12:30)
--- NOTE | 2021-04-18 15:40 | Communication Note ---
Date of Service: April 18, 2021 Tegretol level was low when checked this am. level was 1.2. In [employer] system 2 months ago 3.1 and 8 days ago 2.8. So it have running low. She does refuse medications at times. An extra 400 mg tablet was given. will order labs again tomorrow am.
--- NOTE | 2021-04-18 20:24 | Hospitalist Progress Note ---
Date of Service April 18, 2021 Assessment & Plan (1) Seizure disorder: Plan: Patient is a 70 yr female coming from [facility] with fall, seems she rolled over from the bed. 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 Again, correlate with urinalysis. Urine culture grows more than 3 types of organisms, on high counts Continue Zosyn for now Abnormal CT CT -Numerous foci of tree-in-bud nodularity scattered throughout both lungs are similar to a 017 examination and suggest a chronic infectious/inflammatory pneumonitis such as atypical mycobacterium. Consider nonemergent pulmonology follow-up. Bilateral nephrolithiasis as above noting in a staghorn calculus in the left renal pelvis. There are indeterminant presacral nodules. These are pathologically indeterminant, but were not clearly seen on the 2017 examination. This could be on a chronic/postoperative basis, or could represent an inflammatory or neoplastic process. -Poor quality of life at baseline Discussed with patient's sister-POA: No aggressive management Palliative care consulted to address goals of care coronary artery disease Continue aspirin Trevino's esophagus Continue famotidine, PPI H/O cerebrovascular accident on aspirin bedbound at baseline Dementia Mechanical soft diet at baseline H/O Diastolic congestive heart failure monitor volume status while on IV fluids DVT Px: Heparin SQ Code Status . DNI/DNR Palliative care consulted to address goals of care Family :Roxie Mcallister [phone] (Patient's Sister) Admission and Anticipated Discharge Date Admission Date: April 17, 2021 Subjective Patient is seen and examined at bedside Patient is much more alert, awake, oriented during my encounter Discussed with patient's family at bedside No recurrence of seizure-like activity Denies any significant left hip pain Appetite much improved as per RN Denies any chest pain, dyspnea, dizziness Review of Systems Review of Systems: All systems reviewed & are unremarkable except as noted in Subjective Physical Exam Physical Exam: Physical Exam: Vitals signs as noted above General Appearance:Elderly, chronic ill, no apparent distress Head: normocephalic, + Post surgical changes Eyes: normal inspection, EOMI Neck: supple, Trachea midline Respiratory/Chest: Normal breath sounds, CTA, No accessory muscle use Cardiovascular: S1, S2, No murmur Abdomen/GI:Soft, Non tender, Bowel sounds present Extremities/Musculoskeletal:normal inspection, no edema, LLE shortened, internally rotated Neurologic/Psych: Follows simple commands, Alert, awake, oriented to person Skin: normal color, warm Results & Data Results & Data ([facility]) Vital Signs (Past 12 Hours) Vital Signs Temp Pulse Pulse Resp BP Pulse Ox 04/18/21 19:26 36.5 C 89 16 114/72 95 04/18/21 16:34 75 04/18/21 11:13 36.7 C 72 16 115/68 94 Laboratory Results Short CBC 04/18/21 Range/Units 06:30 WBC 4.07 L (4.8-10.8) K/uL Hgb 12.0 (12.0-16.0) g/dL Hct 37.0 (37-47) % Plt Count 133 (130-400) K/uL BMP 04/18/21 06:30 Sodium 139 Potassium 4.5 D Chloride 108 H Carbon Dioxide 30 BUN 9 D Creatinine 0.56 L Glucose 86 Calcium 8.7
[2021-04-19] MEDS: CHECK SCOPOLAMINE PATCH PLACEMENT SCH ×4 (02:11→16:09)
[2021-04-19 05:13] LABS: Albumin Globulin Ratio 0.5 (0.9-2); Albumin Level 2.4 gm/dl (3.4-5.0); Bilirubin,Total 0.3 mg/dl (0.2-1); Calcium 8.9 mg/dl (8.5-10.1); Creatinine Clr Calc Pharmacy 59.4 ml/min; Est GFR (African American) 102.5 ml/min; Est GFR (Non-African American) 88.4 ml/min; Globulin 4.7 gm/dl (2.5-4.0); Magnesium 2.1 mg/dl (1.8-2.4); Potassium 3.8 mmol/L (3.5-5.1); Total Protein 7.1 gm/dl (6.4-8.2)
[2021-04-19 05:33] LABS: Hematocrit (blood only) 39.7 % (37-47); Hemoglobin 12.9 g/dL (12.0-16.0); Mean Corpuscular Hemoglobin 32.4 pg (25-34); Mean Corpuscular Hgb Conc 32.5 g/dL (32-36); Mean Corpuscular Volume 99.7 fL (80-100); Mean Platelet Volume 9.7 fL (7.4-10.4); Platelet Count 115 K/uL (130-400); RDW Coefficient of Variation 13.2 % (11.5-14.5); RDW Standard Deviation 47.6 fL (36.4-46.3); Red Blood Count 3.98 M/uL (4.2-5.4)
[2021-04-19] MEDS: HEPARIN SOD 5,000 UNIT/0.5 ML VIAL SQ SCH ×3 (06:00→21:38)
[2021-04-19] MEDS ORDERED: PROMETHAZINE HCL 6.25 MG in SODIUM CHLORIDE 0.9% 50 ML IV PRN (06:09)
[2021-04-19] MEDS ORDERED: NSS + 20MEQ KCL 20 MEQ/1,000 ML BAG IV ONE (06:30)
[2021-04-19] MEDS ORDERED: SCOPOLAMINE 1 MG TDSY TD SCH (09:00)
[2021-04-19] MEDS: PIPERACILLIN/TAZOBACTAM 3.375 GM in DEXTROSE 5% 100 ML IV SCH ×2 (09:48→16:09)
[2021-04-19] MEDS: ASPIRIN 81 MG ECTAB PO SCH ×2 (09:51→10:35)
[2021-04-19] MEDS: lamoTRIgine 25 MG TAB PO SCH ×3 (09:51→21:36)
[2021-04-19] MEDS: FAMOTIDINE 20 MG TAB PO SCH ×2 (09:51→10:36)
[2021-04-19] MEDS: PANTOprazole 40 MG TAB PO SCH ×2 (09:51→10:37)
[2021-04-19] MEDS: DICLOFENAC SOD 1% GEL 100 GM TUBE EXT SCH ×3 (09:52→21:33)
[2021-04-19] MEDS: MULTIVITAMIN TAB PO SCH ×2 (09:52→10:36)
[2021-04-19] MEDS: MENTHOL-ZINC OXIDE 360 APPLN/120 GM TUBE EXT SCH ×4 (09:53→21:37)
[2021-04-19] MEDS: lamoTRIgine 100 MG TAB PO SCH ×3 (09:53→21:36)
[2021-04-19] MEDS: ACETAMINOPHEN 500 MG TAB PO SCH ×4 (09:54→21:36)
[2021-04-19] MEDS: PHENYTOIN SUSP 125 MG/5 ML PO SCH ×2 (09:54→10:37)
[2021-04-19] MEDS: POTASSIUM CHLORIDE CRTAB 20 MEQ TABCR PO SCH ×3 (10:13→21:38)
--- NOTE | 2021-04-19 10:59 | Communication Note ---
Date of Service: April 19, 2021 Clau was given an extra dose of Tegretol yesterday but to the low lab. Today she is 12.4 which is a little high. Would continue pre hospital dosing and encourage her to take the medications as ordered. She is known to refuse doses and this is likely the cause of low levels. We will be availabe for any further questions concerns and can see her in outpatient clinic in 4-6 weeks. I have seen and discussed above patient with Dr Spencer Brito, neurology
--- NOTE | 2021-04-19 11:13 | XRay Report ---
XR KUB/Abdomen 1 view CLINICAL HISTORY: nausea, vomiting TECHNIQUE: 1 view of the abdomen was obtained. Comparison: None available at the time of this dictation. FINDINGS: Lung bases are unremarkable. Dextroscoliosis is seen. The bowel gas pattern is nonobstructive. A mode rate amount of stool is noted within the large bowel. IMPRESSION: Nonobstructive bowel gas pattern. ACT 112: Negative or not required by law. Electronically signed by: Connor Berrios M.D. 04/19/2021 11:12 AM
[2021-04-19] MEDS ORDERED: PHENYTOIN SOD INJ 50 MG/ML 5 ML VIAL IV SCH (12:00)
[2021-04-19] MEDS ORDERED: 0.9 % SODIUM CHLORIDE FLUSH 20 ML in SYRINGE 0 ML IV SCH (12:00)
[2021-04-19] MEDS: FAMOTIDINE 20 MG in SYRINGE 3 ML IV SCH ×2 (13:19→21:32)
[2021-04-19] MEDS: PANTOprazole 40 MG in SYRINGE 0 ML IV SCH (13:19)
[2021-04-19] MEDS: PHENYTOIN IV SCH ×2 (16:06→23:48)
[2021-04-19] MEDS: 0.9 % SODIUM CHLORIDE FLUSH 20 ML in SYRINGE 0 ML IV SCH ×2 (16:08→23:48)
--- NOTE | 2021-04-19 18:57 | Hospitalist Progress Note ---
Date of Service April 19, 2021 Assessment & Plan (1) Seizure disorder: Plan: Patient is a 70 yr female coming from [facility] with fall, seems she rolled over from the bed. 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 Partial complex seizure Continue Dilantin, Tegretol, Lamictal Appreciate neurology input Follow-up Lamictal, Tegretol and Dilantin levels Seizure precautions Phenytoin level within normal limits Tegretol level 1.2: Low Lamotrigine level pending Received extra dose of Tegretol today as per Neurology Tegretol level increased to 12.4 after additional dose Noncompliance with antiseizure medications Okay to continue Tegretol as per neurology We will repeat Tegretol level again tomorrow Needs follow-up with neurology in 4 to [address] ABD A large air-fluid levels noted in the bladder with numerous bladder calculi, some of which are contained within bladder diverticula. Again, correlate with urinalysis. Urine culture grows more than 3 types of organisms, on high counts Continue Zosyn for now Abnormal CT CT -Numerous foci of tree-in-bud nodularity scattered throughout both lungs are similar to a 017 examination and suggest a chronic infectious/inflammatory pn eumonitis such as atypical mycobacterium. Consider nonemergent pulmonology follow-up. Bilateral nephrolithiasis as above noting in a staghorn calculus in the left renal pelvis. There are indeterminant presacral nodules. These are pathologically indeterminant, but were not clearly seen on the 2017 examination. This could be on a chronic/postoperative basis, or could represent an inflammatory or neoplastic process. -Poor quality of life at baseline Discussed with patient's sister-POA: No aggressive management Palliative care consulted to address goals of care coronary artery disease Continue aspirin Trevino's esophagus Continue famotidine, PPI H/O cerebrovascular accident on aspirin bedbound at baseline Dementia Mechanical soft diet at baseline H/O Diastolic congestive heart failure monitor volume status while on IV fluids DVT Px: Heparin SQ Code Status . DNI/DNR Palliative care consulted to address goals of care Family :Roxie Mcallister [phone] (Patient's Sister) Admission and Anticipated Discharge Date Admission Date: April 17, 2021 Subjective Patient is seen and examined at bedside Noncompliant with medication intake Had an episode of nausea, vomiting earlier today Poor historian Discussed with neurology today Updated patient's family over the phone Denies any chest pain, dyspnea, dizziness Review of Systems Review of Systems: All systems reviewed & are unremarkable except as noted in Subjective Physical Exam Physical Exam: Physical Exam: Vitals signs as noted above General Appearance:Elderly, chronic ill, no apparent distress Head: normocephalic, + Post surgical changes Eyes: normal inspection, EOMI Neck: supple, Trachea midline Respiratory/Chest: Normal breath sounds, CTA, No accessory muscle use Cardiovascular: S1, S2, No murmur Abdomen/GI:Soft, Non tender, Bowel sounds present Extremities/Musculoskeletal:normal inspection, no edema, LLE shortened, internally rotated Neurologic/Psych: Follows simple commands, Alert, awake, oriented to person Skin: normal color, warm Results & Data Results & Data ([facility]) Vital Signs (Past 12 Hours) Vital Signs Temp Pulse Pulse Resp BP Pulse Ox 04/19/21 15:37 36.4 C L 80 16 96/66 L 93 04/19/21 11:58 36.4 C L 77 18 155/83 H 93 04/19/21 08:08 36.4 C L 71 18 110/70 96 04/19/21 08:00 76 Laboratory Results Short CBC 04/19/21 Range/Units 04:25 WBC 5.40 (4.8-10.8) K/uL Hgb 12.9 (12.0-16.0) g/dL Hct 39.7 (37-47) % Plt Count 115 L (130-400) K/uL BMP 04/19/21 04:25 Sodium 138 Potassium 3.8 D Chloride 106 Carbon Dioxide 27 BUN 10 Creatinine 0.67 Glucose 155 H Calcium 8.9 Liver Function 04/19/21 Range/Units 04:25 Total Bilirubin 0.3 (0.2-1) mg/dl AST 17 (15-37) U/L ALT 13 (12-78) U/L Alkaline Phosphatase 136 H (45-117) U/L Albumin 2.4 L (3.4-5.0) gm/dl
[2021-04-20] MEDS: CHECK SCOPOLAMINE PATCH PLACEMENT SCH ×3 (00:05→16:38)
[2021-04-20] MEDS: HEPARIN SOD 5,000 UNIT/0.5 ML VIAL SQ SCH ×3 (05:50→21:56)
[2021-04-20] MEDS: PHENYTOIN IV SCH ×3 (06:32→23:52)
[2021-04-20] MEDS: 0.9 % SODIUM CHLORIDE FLUSH 20 ML in SYRINGE 0 ML IV SCH ×3 (06:32→23:52)
[2021-04-20] MEDS: MENTHOL-ZINC OXIDE 360 APPLN/120 GM TUBE EXT SCH ×4 (08:31→21:56)
[2021-04-20] MEDS: DICLOFENAC SOD 1% GEL 100 GM TUBE EXT SCH ×3 (08:31→21:56)
[2021-04-20] MEDS: FAMOTIDINE 20 MG in SYRINGE 3 ML IV SCH ×2 (08:39→21:56)
[2021-04-20 08:55] LABS: BUN Creatinine Ratio 11.4 (10-20); Calcium 8.9 mg/dl (8.5-10.1); Creatinine Clr Calc Pharmacy 66.7 ml/min; Est GFR (African American) 105.1 ml/min; Est GFR (Non-African American) 90.7 ml/min; Potassium 3.6 mmol/L (3.5-5.1)
[2021-04-20] MEDS: ACETAMINOPHEN 500 MG TAB PO SCH ×3 (09:02→21:54)
[2021-04-20] MEDS: ASPIRIN 81 MG ECTAB PO SCH (09:02)
[2021-04-20] MEDS: POTASSIUM CHLORIDE CRTAB 20 MEQ TABCR PO SCH ×2 (09:03→21:54)
[2021-04-20] MEDS: lamoTRIgine 25 MG TAB PO SCH ×2 (09:03→21:55)
[2021-04-20] MEDS: MULTIVITAMIN TAB PO SCH (09:03)
[2021-04-20] MEDS: lamoTRIgine 100 MG TAB PO SCH ×2 (09:03→21:54)
[2021-04-20] MEDS: PANTOprazole 40 MG in SYRINGE 0 ML IV SCH (11:28)
--- NOTE | 2021-04-20 21:13 | Hospitalist Progress Note ---
Date of Service April 20, 2021 Assessment & Plan (1) Seizure disorder: Plan: Patient is a 70 yr female coming from [facility] with fall, seems she rolled over from the bed. 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 Again, correlate with urinalysis. Urine culture grows more than 3 types of organisms, on high counts Completed Zosyn course Abnormal CT CT -Numerous foci of tree-in-bud nodularity scattered throughout both lungs are similar to a 017 examination and suggest a chronic infectious/inflammatory pneumonitis such as atypical mycobacterium. Consider nonemergent pulmonology follow-up. Bilateral nephrolithiasis as above noting in a staghorn calculus in the left renal pelvis. There are indeterminant presacral nodules. These are pathologically indeterminant, but were not clearly seen on the 2017 examination. This could be on a chronic/postoperative basis, or could represent an inflammatory or neoplastic process. -Poor quality of life at baseline Discussed with patient's sister-POA: No aggressive management Palliative care consulted to address goals of care coronary artery disease Continue aspirin Trevino's esophagus Continue famotidine, PPI H/O cerebrovascular accident on aspirin bedbound at baseline Dementia Mechanical soft diet at baseline H/O Diastolic congestive heart failure monitor volume status while on IV fluids DVT Px: Heparin SQ Code Status . DNI/DNR Palliative care consulted to address goals of care Family :Roxie Mcallister [phone] (Patient's Sister) Admission and Anticipated Discharge Date Admission Date: April 17, 2021 Subjective Patient is seen and examined at bedside No distress during my encounter Continues to be noncompliant with medication intake No seizure activity overnight Denies any chest pain, dyspnea, dizziness History unreliable Review of Systems Review of Systems: All systems reviewed & are unremarkable except as noted in Subjective Physical Exam Physical Exam: Physical Exam: Vitals signs as noted above General Appearance:Elderly, chronic ill, no apparent distress Head: normocephalic, + Post surgical changes Eyes: normal inspection, EOMI Neck: supple, Trachea midline Respiratory/Chest: Normal breath sounds, CTA, No accessory muscle use Cardiovascular: S1, S2, No murmur Abdomen/GI:Soft, Non tender, Bowel sounds present Extremities/Musculoskeletal:normal inspection, no edema, LLE shortened, internally rotated Neurologic/Psych: Follows simple commands, Alert, awake, oriented to person Skin: normal color, warm Results & Data Results & Data ([facility]) Vital Signs (Past 12 Hours) Vital Signs Temp Pulse Resp BP BP Pulse Ox 04/20/21 18:43 36.7 C 77 18 121/72 98 04/20/21 11:02 36.7 C 81 18 115/69 100 Laboratory Results [facility] 04/20/21 07:46 Sodium 142 Potassium 3.6 Chloride 107 Carbon Dioxide 28 BUN 7 Creatinine 0.62 Glucose 97 Calcium 8.9
[2021-04-21] MEDS: CHECK SCOPOLAMINE PATCH PLACEMENT SCH ×2 (00:17→09:11)
[2021-04-21] MEDS: HEPARIN SOD 5,000 UNIT/0.5 ML VIAL SQ SCH (06:15)
[2021-04-21] MEDS: PHENYTOIN IV SCH (06:16)
[2021-04-21] MEDS: 0.9 % SODIUM CHLORIDE FLUSH 20 ML in SYRINGE 0 ML IV SCH (06:16)
[2021-04-21 08:48] LABS: BUN Creatinine Ratio 14.9 (10-20); Calcium 8.5 mg/dl (8.5-10.1); Est GFR (Non-African American) 100.1 ml/min; Potassium 3.6 mmol/L (3.5-5.1)
[2021-04-21] MEDS: ASPIRIN 81 MG ECTAB PO SCH (10:20)
[2021-04-21] MEDS: lamoTRIgine 25 MG TAB PO SCH (10:21)
[2021-04-21] MEDS: MULTIVITAMIN TAB PO SCH (10:21)
[2021-04-21] MEDS: lamoTRIgine 100 MG TAB PO SCH (10:22)
--- NOTE | 2021-04-21 11:09 | Communication Note ---
Date of Service: April 21, 2021 Clau had a Tegretol level of 8.2 yesterday after a 400 mg bolus 2 days previously and is still on her maintenance outpatient Tegretol dose. We are highly suspicious that she is noncompliant in her nursing facility and that her low Tegretol level is on this basis. I would suggest another Tegretol level be done tomorrow to ensure stability on the current dose and with consistent inpatient based compliance with medications Spencer Brito MD
--- NOTE | 2021-04-21 11:09 | Hospitalist Progress Note ---
Date of Service April 21, 2021 Assessment & Plan (1) Seizure disorder: Plan: Patient is a 70 yr female coming from [facility] with fall, seems she rolled over from the bed. 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 Again, co rrelate with urinalysis. Urine culture grows more than 3 types of organisms, on high counts Completed Zosyn course Abnormal CT CT -Numerous foci of tree-in-bud nodularity scattered throughout both lungs are similar to a 017 examination and suggest a chronic infectious/inflammatory pneumonitis such as atypical mycobacterium. Consider nonemergent pulmonology follow-up. Bilateral nephrolithiasis as above noting in a staghorn calculus in the left renal pelvis. There are indeterminant presacral nodules. These are pathologically indeterminant, but were not clearly seen on the 2017 examination. This could be on a chronic/postoperative basis, or could represent an inflammatory or neoplastic process. -Poor quality of life at baseline Discussed with patient's sister-POA: No aggressive management/Further investigation per POA Palliative care consulted to address goals of care coronary artery disease Continue aspirin Trevino's esophagus Continue famotidine, PPI H/O cerebrovascular accident on aspirin bedbound at baseline Dementia Mechanical soft diet at baseline H/O Diastolic congestive heart failure monitor volume status while on IV fluids DVT Px: Heparin SQ Code Status . DNI/DNR Palliative care consulted to address goals of care Family :Roxie Mcallister [phone] (Patient's Sister) Admission and Anticipated Discharge Date Admission Date: April 17, 2021 Subjective Patient is seen and examined at bedside No significant change from yesterday No seizure activity recurrence Denies any chest pain, dyspnea, dizziness Plan to discharge today Review of Systems Review of Systems: All systems reviewed & are unremarkable except as noted in Subjective Physical Exam Physical Exam: Physical Exam: Vitals signs as noted above General Appearance:Elderly, chronic ill, no apparent distress Head: normocephalic, + Post surgical changes Eyes: normal inspection, EOMI Neck: supple, Trachea midline Respiratory/Chest: Normal breath sounds, CTA, No accessory muscle use Cardiovascular: S1, S2, No murmur Abdomen/GI:Soft, Non tender, Bowel sounds present Extremities/Musculoskeletal:normal inspection, no edema, LLE shortened, internally rotated Neurologic/Psych: Follows simple commands, Alert, awake, oriented to person Skin: normal color, warm Results & Data Results & Data ([facility]) Vital Signs (Past 12 Hours) Vital Signs Temp Pulse Pulse Resp BP Pulse Ox 04/21/21 07:21 80 04/21/21 03:48 36.8 C 84 18 146/85 H 99 04/21/21 00:42 79 Laboratory Results BMP 04/21/21 07:52 Sodium 142 Potassium 3.6 Chloride 108 H Carbon Dioxide 27 BUN 7 Creatinine 0.46 L Glucose 103 H Calcium 8.5
--- NOTE | 2021-04-21 11:15 | Discharge Summary ---
Date of Service April 21, 2021 Admission HPI Per Admitting Provider CHIEF COMPLAINT: Status post fall and UTI. 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 She is basically bedbound, history of epilepsy, migraines, history of dementia, peripheral neuropathy, anemia of chronic kidney disease, depression, generalized anxiety disorder, history of COVID-19 in 04/2020. Currently, vaccinated now status post booster dose, hypertension, allergic rhinitis, asthma, currently living at [facility] who was brought in because of fall from the bed. The patient seems to be rolled out over the bed and fell down and question of some shortened left lower extremity.. Imaging studies in the ER showed questionable subtle fracture of the left greater trochanter of uncertain chronicity and also possible gas forming organisms on the bladder. The patient is currently resting comfortably and hemodynamically stable. Denies any pain. Denies any cough, denies any chest pain or any belly pain. She says she eats okay, but she is a poor historian, could tell her name.As per custodial, she is totally bedbound. Her memory got worse since the COVID last April and her appetite is also down since then. She is on a mechanical soft diet and she drinks liquid through Emre cup. Currently, patient is afebrile. Could not able to reach her sister who is her power of captain waiter and she is a DNR as per custodial. Admission Exam Per Admitting Provider PHYSICAL EXAMINATION: GENERAL: The patient is alert, awake, oriented to name. VITAL SIGNS: Temperature 37, pulse 74, respirations 16, blood pressure 156/77, oxygen 97% on room air. HEENT: Pupils equal, round and reactive to light. Oral mucosa moist. NECK: No JVD or neck masses. CARDIOVASCULAR: S1 and S2 heard. Regular rate and rhythm, no murmur, no gallop. RESPIRATORY SYSTEM: Normal AP diameter. No accessory muscle use. No wheezing, no crackles. ABDOMEN: Soft, bowel sounds present, nontender, no distention. CENTRAL NERVOUS SYSTEM: Alert and awake, oriented to name. Tries to obey simple commands. No facial droop seen. Some weakness on the left side. EXTREMITIES: Left lower extremity is somewhat shortened. No edema, no erythema seen. Principal Diagnosis Mechanical fall Left femur fracture Seizure disorder Urinary tract infection Discharge Data Allergies Allergy/AdvReac Type Severity Reaction Status Date / Time pseudoephedrine Allergy Unknown . Verified 04/16/21 20:36 Consultations 04/17/21 02:05 ED Decision to Admit Stat 04/17/21 09:15 Consult Neurology Routine 04/17/21 09:18 Consult Orthopedic Surgery Routine 04/17/21 10:00 Consult Palliative Care Routine Ordered Studies 04/16/21 20:41 CT abd pelvis wo con Urgent CT cervical spine wo con Urgent CT chest diagnostic wo con Urgent CT head/brain wo con Urgent Hospital Course (1) Seizure disorder: Patient is a 70 yr female coming from [facility] with fall, seems she rolled over from the bed. 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 Again, correlate with urinalysis. Urine culture grows more than 3 types of organisms, on high counts Completed Zosyn course Abnormal CT CT -Numerous foci of tree-in-bud nodularity scattered throughout both lungs are similar to a 017 examination and suggest a chronic infectious/inflammatory pneumonitis such as atypical mycobacterium. Consider nonemergent pulmonology follow-up. Bilateral nephrolithiasis as above noting in a staghorn calculus in the left renal pelvis. There are indeterminant presacral nodules. These are pathologically indeterminant, but were not clearly seen on the 2017 examination. This could be on a chronic/postoperative basis, or could represent an inflammatory or neoplastic process. -Poor quality of life at baseline Discussed with patient's sister-POA: No aggressive management/Further investigation per POA Palliative care consulted to address goals of care coronary artery disease Continue aspirin Trevino's esophagus Continue famotidine, PPI H/O cerebrovascular accident on aspirin bedbound at baseline Dementia Mechanical soft diet at baseline H/O Diastolic congestive heart failure monitor volume status while on IV fluids DVT Px: Heparin SQ Code Status . DNI/DNR Palliative care consulted to address goals of care Family :Roxie Mcallister [phone] (Patient's Sister) Total Time Total Time Spent Total Time Spent (In Minutes): 50 minutes Discharge Plan Discharge Items Patient Disposition: Transfer Group Home Fac Reason For Visit: FALL Discharge Diagnosis: Mechanical fall Left femur fracture Seizure disorder Urinary tract infection Activity: Per Instructions section Non-emergency contact: Primary Care Provider and Neurologist Call non-emergency contact if: you have any medication questions, your symptoms worsen, your pain is concerning for you and you have a fever Follow-up/Referrals: Luis Manuel Mehta MD [Primary Care Provider] - Dietitian Info: Minced and Moist Diet: Heart Healthy Addtl Attending Provider Instructions: Follow-up with your primary care physician Dr. Mehta in 1 week Follow-up with your neurologist Dr. Brito in 4 to 6 weeks Seek immediate medical attention if your symptoms reoccur or worsen Please take all medications as instructed on discharge list below. Please call if you have any questions or problems. You can reach a [facility] hospitalist on duty at [facility] 24 hours a day by calling [phone] Pending Studies at Discharge: No Stand-Alone Forms: My [facility] Skilled Items Patient informed of condition?: Yes DNR: Yes Discharge Level of Care: Skilled Communicable Disease: No Discharge Prognosis: Stable Lines: None Urinary Catheter: No Medications and DC Order Prescriptions: Continued multivitamin Tablet 1 tab PO DAILY RF: 0 lamotrigine 200 mg Tablet 200 mg PO BID RF: 0 polyethylene glycol 3350 17 gram Powder In Packet 17 g PO 2XWK RF: 0 aspirin [Aspir-81] 81 mg Tablet,Delayed Release (Dr/Ec) 81 mg PO QAM RF: 0 acetaminophen 500 mg Tablet 500 mg PO TID RF: 0 phenytoin 125 mg/5 mL Suspension 250 mg PO TID RF: 0 lamotrigine 25 mg Tablet 25 mg PO BID RF: 0 famotidine 20 mg Tablet 20 mg PO BID RF: 0 omeprazole 20 mg Capsule,Delayed Release(Dr/Ec) 20 mg PO QAM RF: 0 carbamazepine 100 mg/5 mL suspension 400 mg PO BID RF: 0 scopolamine base 1 mg over 3 days Patch 3 Day 1 patch TRANSDERMAL Q3D RF: 0 diclofenac sodium 1 % gel 2 g TOPICAL TID RF: 0 carbamazepine 200 mg/10 mL Suspension 600 mg PO HS RF: 0 Calmoseptine 0.44-20.6 % Ointment In Packet 1 applic TOPICAL QID RF: 0 potassium chloride 20 mEq Tablet Extended Release 20 meq PO BID RF: 0 Discharge Orders: Discharge Order (Routine); Ordered 04/21/21 Ordered By: Omar Pruitt Admission Data Admit Date/Time: 04/17/21 03:25 Attending Provider: Omar Pruitt Admit Provider: Demar Shore Primary Care Provider: Luis Manuel Mehta Other Providers: Demar Shore ; Ayde Rebolledo ; Anitra Brady ; Sawyer Banegas ; Vipin Jeffries ; Emory Castelan ; Verónica Roa ; Tierra Mitchell ; Geovani Guaman ; Darnell Loco ; Gallo Patel ; Gallo Veliz ; Klaudia Freeman ; Leah Link ; Micaela Peguero ; Emiliana Mclaughlin ; Sallie Catalan
[2021-04-21] MEDS: PANTOprazole 40 MG in SYRINGE 0 ML IV SCH (11:32)
[2021-04-21] MEDS: DICLOFENAC SOD 1% GEL 100 GM TUBE EXT SCH (11:33)
[2021-04-21] MEDS: MENTHOL-ZINC OXIDE 360 APPLN/120 GM TUBE EXT SCH (11:34)
[2021-04-21] MEDS: POTASSIUM CHLORIDE CRTAB 20 MEQ TABCR PO SCH (11:39)
[2021-04-21] MEDS: ACETAMINOPHEN 500 MG TAB PO SCH (11:39)
[2021-04-21] MEDS: FAMOTIDINE 20 MG in SYRINGE 3 ML IV SCH (12:11)
== END 2021-04-21 14:30 | DRG 689 ==
LOC: ED 19:50 → EDINP 04-17 03:25 → 2W 04-17 04:40